=== PATIENT | male | born 1935 | race Caucasian/White ===

== ENCOUNTER → 2018-04-07 | Outpatient (CLI) | payer MEDICARE ==
--- NOTE | 2018-04-07 13:21 | MR ---
EXAMINATION TYPE: MR lumbar spine wo con DATE OF EXAM: 04/07/2018 COMPARISON: None HISTORY: Spinal stenosis, lumbar region, pain CONTRAST: 0 mL intravenous Gadavist. TECHNIQUE: Multiplanar, multisequence images of the lumbar spine were acquired. FINDINGS: L5-S1: There is a large central disc herniation with mild anterior thecal sac compression. Spinal c anal stenosis is present at 0.8 cm. Moderate right and severe left foraminal stenosis is present. L4-L5: There is narrowing of the disc height. Very minimal disc bulge has anterior thecal sac contact . No spinal canal stenosis present. Left facet hypertrophy is present there is moderate to severe lef t foraminal stenosis and very mild right foraminal stenosis at this level. L3-L4: Disc uncovering is present with mild anterior thecal sac compression. Facet hypertrophy with l igamentum flavum laxity is posterior lateral thecal sac compression. There may be some lateral canal narrowing. Very mild grade 1 spondylolisthesis of L3 anterior and L4 is present. Posterior disc space narrowing is present. There is severe bilateral foraminal stenosis. L2-L3: Broad-based disc bulge is present. This is slightly more focal centrally and may has some mild subligamentous disc extension beyond the endplate of L3. No AP spinal canal stenosis present. [employer] ior lateral thecal sac compression from facet hypertrophy and ligamentum flavum laxity is present. Fo ramen are patent. L1-L2: There is a right paracentral disc bulge which has mild anterior thecal sac compression. No spi nal canal stenosis present. Facet hypertrophy with mild ligamentum flavum laxity is present. Neural f oramen are patent. T12-L1: No significant disc bulge or disc herniation. No spinal canal stenosis. No foraminal stenos is. IMPRESSION: 1. Large central disc herniation L5-S1 with mild anterior thecal sac compression contributing to spin al canal stenosis. 2. Moderate to severe bilateral foraminal stenosis L4-5, L5-S1 and L3-4. 3. Grade 1 spondylolisthesis of L3 anterior and L4. Disc uncovering is contributing to mild anterior thecal sac compression. Ligamentum flavum laxity is contributing to lateral canal narrowing. 4. Subligamentous disc extension at the L2-L3 level with mild anterior thecal sac compression. 5. Right paracentral focal bulge with mild anterior thecal sac compression.
== END ==
LOC: RADMRIMAIN 07:28
PROVIDERS: ATTEND Internal Medicine
DX: M48.061 Spinal stenosis, lumbar region without neurogenic claudication (principal); M99.73 Connective tissue and disc stenosis of intervertebral foramina of lumbar region; M43.16 Spondylolisthesis, lumbar region; M51.27 Other intervertebral disc displacement, lumbosacral region
CPT/HCPCS: 72148

== ENCOUNTER 2020-08-07 03:25 | Observation (INO) | payer MEDICARE ==
--- NOTE | 2020-08-07 04:45 | ED ---
GI Bleed HPI - General Chief complaint: Recheck/Abnormal Lab/Rx Stated complaint: rectal bleeding Time Seen by Provider: 08/07/20 03:39 Source: patient Mode of arrival: ambulatory Limitations: no limitations - History of Present Illness Initial comments: this patient is an 85-year-old man who presents to be evaluated for passing some dark red blood with his stool. The patient states that this it come on tonight. He had been having some some difficulty with constipation after recently being in the hospital for prostate issues. He states that he had taken a number of remedies to help have bowel movement and then when he did pass some stool tonigh t there was some dark blood present with hard stool. He also had what appeared to be some blood mixed in the stool. Patient states there was no pain in the abdomen. No perianal pain. He denies any signs or symptoms of anemia. No chest pain, palpitations, lightheadedness, dyspnea or syncope. Patient is not taking any blood thinning medications. MD complaint: blood streaked stool -: hour(s) Severity scale (1-10): 0 Quality: painless Consistency: constant Improves with: none Worsens with: none Associated Symptoms: denies other symptoms - Related Data Allergies Allergy/AdvReac Type Severity Reaction Status Date / Time No Known Allergies Allergy Verified 08/07/20 03:32 Review of Systems ROS Statement: Those systems with pertinent positive or pertinent negative responses have been documented in the HPI. ROS Other: All systems not noted in ROS Statement are negative. Constitutional: Denies: fever, chills Respiratory: Denies: cough, dyspnea Cardiovascular: Denies: chest pain, palpitations, edema Gastrointestinal: Reports: constipation, melena. Denies: abdominal pain, nausea, vomiting, diarrhea, hematemesis, hematochezia Genitourinary: Denies: dysuria, hematuria, testicular pain Musculoskeletal: Denies: back pain Skin: Denies: rash Neurological: Denies: headache, weakness, numbness Past Medical History Past Medical History: No Reported History History of Any Multi-Drug Resistant Organisms: None Reported Past Surgical History: No Surgical Hx Reported Past Psychological History: No Psychological Hx Reported Smoking Status: Never smoker Past Alcohol Use History: None Reported Past Drug Use History: None Reported General Exam Limitations: no limitations General appearance: alert, in no apparent distress Head exam: Present: atraumatic, normocephalic Eye exam: Present: normal appearance. Absent: scleral icterus, conjunctival injection ENT exam: Present: normal oropharynx Neck exam: Present: normal inspection Respiratory exam: Present: normal lung sounds bilaterally. Absent: respiratory distress, wheezes, rales, rhonchi, stridor Cardiovascular Exam: Present: regular rate, normal rhythm, normal heart sounds. Absent: systolic murmur, diastolic murmur, rubs, gallop GI/Abdominal exam: Present: soft. Absent: distended, tenderness, guarding, rebound, rigid, mass, pulsatile mass, hernia Rectal exam: Present: normal inspection, normal rectal tone. Absent: black stool, bloody stool, fecal impaction, hemorrhoids, mass, tenderness, prostate tenderness Extremities exam: Present: normal inspection, normal capillary refill. Absent: pedal edema, calf tenderness Back exam: Present: normal inspection. Absent: CVA tenderness (R), CVA tenderness (L) Neurological exam: Present: alert Skin exam: Present: warm, dry, intact, normal color. Absent: rash Course Vital Signs 08/07/20 08/07/20 03:30 07:00 Temperature 97.8 F Pulse Rate 117 H 97 Respiratory 20 18 Rate Blood Pressure 130/65 128/62 O2 Sat by Pulse 96 99 Oximetry Medical Decision Making - Lab Data Result diagrams: 08/07/20 04:40 08/07/20 04:40 Lab Results 08/07/20 08/07/20 08/07/20 Range/Units 04:40 04:40 04:40 WBC 10.8 H (3.8-10.6) k/uL RBC 4.66 (4.30-5.90) m/uL Hgb 14.0 (13.0-17.5) gm/dL Hct 40.7 (39.0-53.0) % MCV 87.3 (80.0-100.0) fL MCH 30.0 (25.0-35.0) pg MCHC 34.4 (31.0-37.0) g/dL RDW 14.6 (11.5-15.5) % Plt Count 222 (150-450) k/uL MPV 7.6 Neutrophils % 75 % Lymphocytes % 15 % Monocytes % 5 % Eosinophils % 4 % Basophils % 0 % Neutrophils # 8.0 H (1.3-7.7) k/uL Lymphocytes # 1.6 (1.0-4.8) k/uL Monocytes # 0.6 (0-1.0) k/uL Eosinophils # 0.4 (0-0.7) k/uL Basophils # 0.0 (0-0.2) k/uL PT 10.6 (9.0-12.0) sec INR 1.0 (<1.2) APTT 21.6 L (22.0-30.0) sec Sodium (137-145) mmol/L Potassium (3.5-5.1) mmol/L Chloride (98-107) mmol/L Carbon Dioxide (22-30) mmol/L Anion Gap mmol/L BUN (9-20) mg/dL Creatinine (0.66-1.25) mg/dL Est GFR (CKD-EPI)AfAm (>60 ml/min/1.73 sqM) Est GFR (CKD-EPI)NonAf (>60 ml/min/1.73 sqM) Glucose (74-99) mg/dL Plasma Lactic Acid Enrique (0.7-2.0) mmol/L Calcium (8.4-10.2) mg/dL Total Bilirubin (0.2-1.3) mg/dL AST (17-59) U/L ALT (4-49) U/L Alkaline Phosphatase (38-126) U/L Troponin I (0.000-0.034) ng/mL Total Protein (6.3-8.2) g/dL Albumin (3.5-5.0) g/dL Stool Occult Blood Negative (Negative) Blood Type Blood Type Confirm Blood Type Recheck Bld Type Recheck Status Antibody Screen Spec Expiration Date 08/07/20 08/07/20 08/07/20 Range/Units 04:40 04:40 04:40 WBC (3.8-10.6) k/uL RBC (4.30-5.90) m/uL Hgb (13.0-17.5) gm/dL Hct (39.0-53.0) % MCV (80.0-100.0) fL MCH (25.0-35.0) pg MCHC (31.0-37.0) g/dL RDW (11.5-15.5) % Plt Count (150-450) k/uL MPV Neutrophils % % Lymphocytes % % Monocytes % % Eosinophils % % Basophils % % Neutrophils # (1.3-7.7) k/uL Lymphocytes # (1.0-4.8) k/uL Monocytes # (0-1.0) k/uL Eosinophils # (0-0.7) k/uL Basophils # (0-0.2) k/uL PT (9.0-12.0) sec INR (<1.2) APTT (22.0-30.0) sec Sodium 139 (137-145) mmol/L Potassium 4.4 (3.5-5.1) mmol/L Chloride 106 (98-107) mmol/L Carbon Dioxide 25 (22-30) mmol/L Anion Gap 8 mmol/L BUN 14 (9-20) mg/dL Creatinine 0.85 (0.66-1.25) mg/dL Est GFR (CKD-EPI)AfAm >90 (>60 ml/min/1.73 sqM) Est GFR (CKD-EPI)NonAf 81 (>60 ml/min/1.73 sqM) Glucose 101 H (74-99) mg/dL Plasma Lactic Acid Enrique 1.3 (0.7-2.0) mmol/L Calcium 9.9 (8.4-10.2) mg/dL Total Bilirubin 1.0 (0.2-1.3) mg/dL AST 29 (17-59) U/L ALT 28 (4-49) U/L Alkaline Phosphatase 122 (38-126) U/L Troponin I <0.012 (0.000-0.034) ng/mL Total Protein 6.6 (6.3-8.2) g/dL Albumin 3.8 (3.5-5.0) g/dL Stool Occult Blood (Negative) Blood Type Blood Type Confirm Blood Type Recheck Bld Type Recheck Status Antibody Screen Spec Expiration Date 08/07/20 08/07/20 Range/Units 04:40 05:49 WBC (3.8-10.6) k/uL RBC (4.30-5.90) m/uL Hgb (13.0-17.5) gm/dL Hct (39.0-53.0) % MCV (80.0-100.0) fL MCH (25.0-35.0) pg MCHC (31.0-37.0) g/dL RDW (11.5-15.5) % Plt Count (150-450) k/uL MPV Neutrophils % % Lymphocytes % % Monocytes % % Eosinophils % % Basophils % % Neutrophils # (1.3-7.7) k/uL Lymphocytes # (1.0-4.8) k/uL Monocytes # (0-1.0) k/uL Eosinophils # (0-0.7) k/uL Basophils # (0-0.2) k/uL PT (9.0-12.0) sec INR (<1.2) APTT (22.0-30.0) sec Sodium (137-145) mmol/L Potassium (3.5-5.1) mmol/L Chloride (98-107) mmol/L Carbon Dioxide (22-30) mmol/L Anion Gap mmol/L BUN (9-20) mg/dL Creatinine (0.66-1.25) mg/dL Est GFR (CKD-EPI)AfAm (>60 ml/min/1.73 sqM) Est GFR (CKD-EPI)NonAf (>60 ml/min/1.73 sqM) Glucose (74-99) mg/dL Plasma Lactic Acid Enrique (0.7-2.0) mmol/L Calcium (8.4-10.2) mg/dL Total Bilirubin (0.2-1.3) mg/dL AST (17-59) U/L ALT (4-49) U/L Alkaline Phosphatase (38-126) U/L Troponin I (0.000-0.034) ng/mL Total Protein (6.3-8.2) g/dL Albumin (3.5-5.0) g/dL Stool Occult Blood (Negative) Blood Type O Positive Blood Type Confirm O Positive Blood Type Recheck No Previous Record Bld Type Recheck Status CABO Indicated Antibody Screen NEGATIVE Spec Expiration Date 08/10/20202339 Disposition Clinical Impression: Lower GI bleeding Disposition: [facility] Condition: Good Is patient prescribed a controlled substance at d/c from ED?: No Referrals: Reyes Pablo MD [Primary Care Provider] - 1-2 days
[2020-08-07 04:57] LABS: Basophils % (A) 0 %; Eosinophils # (A) 0.4 k/uL (0-0.7); Eosinophils % (A) 4 %; HCT 40.7 % (39.0-53.0); Lymphocytes # (A) 1.6 k/uL (1.0-4.8); Lymphocytes % (A) 15 %; MCHC 34.4 g/dL (31.0-37.0); MCV 87.3 fL (80.0-100.0); Mean Platelet Volume 7.6; Monocytes # (A) 0.6 k/uL (0-1.0); Monocytes % (A) 5 %; Neutrophils % (A) 75 %; Platelet Count 222 k/uL (150-450); RBC 4.66 m/uL (4.30-5.90); RDW 14.6 % (11.5-15.5); WBC 10.8 k/uL (3.8-10.6)
[2020-08-07 05:05] LABS: ALT 28 U/L (4-49); AST 29 U/L (17-59); African American GFR (CKD) >90 (>60 ml/min/1.73 sqM); Albumin 3.8 g/dL (3.5-5.0); Alkaline Phosphatase 122 U/L (38-126); Anion Gap 8 mmol/L; Blood Urea Nitrogen 14 mg/dL (9-20); Calcium 9.9 mg/dL (8.4-10.2); Carbon Dioxide 25 mmol/L (22-30); Chloride 106 mmol/L (98-107); Glucose 101 mg/dL (74-99); Non-African American GFR(CKD) 81 (>60 ml/min/1.73 sqM); Potassium 4.4 mmol/L (3.5-5.1); Sodium 139 mmol/L (137-145); Total Protein 6.6 g/dL (6.3-8.2)
[2020-08-07 05:22] LABS: Prothrombin Time 10.6 sec (9.0-12.0)
[2020-08-07 05:33] LABS: Partial Thromboplastin Time 21.6 sec (22.0-30.0)
[2020-08-07] MEDS ORDERED: ACETAMINOPHEN TAB 325 MG TAB PO PRN (07:09)
[2020-08-07] MEDS ORDERED: ONDANSETRON 4 MG/2 ML VIAL IVP PRN (07:09)
[2020-08-07] MEDS ORDERED: NALOXONE 0.4 MG/ML 1 ML VIAL IV PRN (07:09)
[2020-08-07] MEDS ORDERED: SODIUM CHLORIDE 0.9% 1,000 ML IV SCH (07:15)
[2020-08-07] MEDS: PANTOPRAZOLE 40 MG/10 ML VIAL IV SCH (08:48)
[2020-08-07] MEDS: HYDROCORTISONE SUPPOSITORY 25 MG SUPP RECTAL SCH (11:40)
--- NOTE | 2020-08-07 12:21 | P.HPIM ---
History of Present Illness H&P Date: 08/07/20 Chief Complaint: Hematochezia This is an 85-year-old white male who reported to the hospital because of passing blood in the stool. He describes the blood as dark and it happened twice since last night. He denies dizziness or loss of consciousness. He denies chest pain, no abdominal pain, no hematuria or dysuria. He denies subjective fever or chills. At the time of examination patient is in bed, he does not appear to be in distress. He denies chest pain. Review of Systems Pertinent positive and negative findings as in HPI. No chest pain, no abdominal pain. Positive for hematochezia. Past Medical History Past Medical History: No Reported History, Eye Disorder Additional Past Medical History / Comment(s): Pt states he had recent hospitalization d/t prostate/urinary flow issues and UTI/hematuria-pt states he had IDC x 11 days and will be following up with Dr. Charles, BPH, diverticular dx, bilateral eye cataracts/glaucoma. History of Any Multi-Drug Resistant Organisms: None Reported Past Surgical History: Back Surgery, Tonsillectomy Additional Past Surgical History / Comment(s): Lumbar spine surgery with Coflex clip, colonoscopy Past Anesthesia/Blood Transfusion Reactions: No Reported Reaction Smoking Status: Never smoker - Past Family History Father Family Medical History: COPD Additional Family Medical History / Comment(s): Father was a smoker. He lived t be 83 yrs old. Mother Family Medical History: Cancer Additional Family Medical History / Comment(s): Colon cancer. Mother is 98yrs old. Medications and Allergies Home Medications Medication Instructions Recorded Confirmed Type Cephalexin [Keflex] 500 mg PO BID 08/07/20 08/07/20 History Latanoprost/Pf [Latanoprost 0.005% 1 drop BOTH EYES HS 08/07/20 08/07/20 History Eye Drop] Allergies Allergy/AdvReac Type Severity Reaction Status Date / Time No Known Allergies Allergy Verified 08/07/20 07:21 Physical Exam Vitals: Vital Signs Temp Pulse Resp BP Pulse Ox 08/07/20 11:21 98.0 F 86 18 132/84 95 08/07/20 08:52 94 18 130/74 98 08/07/20 07:00 97 18 128/62 99 08/07/20 03:30 97.8 F 117 H 20 130/65 96 Intake and Output 08/06/20 08/07/20 08/07/20 22:59 06:59 14:59 Other: Weight 77.111 kg 77.111 kg Constitutional: No acute distress, conversant, pleasant Eyes: Anicteric sclerae, moist conjunctiva ENMT: NC/AT,Oropharynx clear Neck:Supple, FROM Lungs: Clear to auscultation, Clear to percussion, Normal respiratory effort, no accessory muscle use Cardiovascular: Heart regular in rate and rhythm, No murmurs, gallops, or rubs no peripheral edema Abdominal: Soft Nontender, non distended, no guarding, no rebound or rigidity, Normoactive bowel sounds No palpable mass No abdominal wall hernia noted Skin: Normal temperature, tone, texture, turgor, No induration No subcutaneous nodules, No rash, lesions, No ulcers Extremities:No digital cyanosis No clubbing, Pedal pulses intact and symmetrical Radial pulses intact and symmetrical Normal gait and station, No calf tenderness Psychiatric: Alert and oriented to person, place and time, Appropriate affect Intact judgement Neuro: Muscles Strength 5/5 in all 4 extremities, Sensation to light touch grossly present throughout, Cranial nerves II-XII grossly intact. No focal sensory deficits Results CBC & Chem 7: 08/07/20 04:40 08/07/20 04:40 Labs: Abnormal Lab Results - Last 24 Hours (Table) 08/07/20 08/07/20 08/07/20 Range/Units 04:40 04:40 04:40 WBC 10.8 H (3.8-10.6) k/uL Neutrophils # 8.0 H (1.3-7.7) k/uL APTT 21.6 L (22.0-30.0) sec Glucose 101 H (74-99) mg/dL Thrombosis Risk Factor Assmnt - Choose All That Apply Any of the Below Risk Factors Present?: Yes Each Factor Represents 1 point: Obesity (BMI >25) Other Risk Factors: Yes Each Risk Factor Represents 3 Points: Age 75 years or older Thrombosis Risk Factor Assessment Total Risk Factor Score: 4 Thrombosis Risk Factor Assessment Level: Moderate Risk Assessment and Plan Assessment: 1. Acute GI bleed, likely lower, unknown etiology, monitor H&H, hemoglobin 14, transfuse as indicated. Start PPI and IV fluids, GI consultation. Patient states that he had a colonoscopy in 2019. 2. Hypovolemia: Start normal saline at 75 mL/h DVT prophylaxis: SCDs Disposition: Home in 1-2 days
--- NOTE | 2020-08-07 12:51 | P.CONS ---
History of Present Illness - Reason for Consult Consult date: 08/07/20 Lower GI bleed Requesting physician: Jay Aleman - Chief Complaint Rectal bleeding - History of Present Illness This is a pleasant 85-year-old white male presented to the emergency room after he had 2 episodes of bright red blood per rectum after having a bowel movement. Patient states he has problems with constipation due to enlarged prostate. He states he has to really push to have a bowel movement and yesterday he gave himself an enema followed by his daughter giving him castor oil to have a bowel movement. He states he had 2 bowel movements and then later noted when he sat on the toilet he had a small amount of bright red blood dripping in the toilet that stopped after wiping. He states he Got up at 2 AM to Go to the Bathroom and Again Saw a Small Amount of Bleeding That Stopped Right Away. He eats the bleeding was painless, had no abdominal cramping or pain. No pain in the rectum. Has a history of diverticulitis for which he underwent a colonoscopy in 2019 at [facility] with Dr. Hall, report not available at this time. Eyes any anticoagulation or NSAID use. He is currently on Keflex for which Dr. Manjarrez has prescribed him for a urinary tract infection as well as watching his prostate. His Hemoccult stool was negative and his presenting labs were WBC 10.8, hemoglobin 14.0, hematocrit 40.0, platelets 222,000 liver enzymes unremarkable, BUN and creatinine normal limits. Review of Systems Constitutional: Denies chills, Denies fever Ears, nose, mouth and throat: Denies headache, Denies sore throat Cardiovascular: Denies chest pain, Denies shortness of breath Respiratory: Denies cough Gastrointestinal: Reports BRBPR, Reports change in bowel habits, Reports constipation, Denies abdominal pain, Denies bloating, Denies coffee ground emesis, Denies melena, Denies nausea, Denies vomiting Genitourinary: Reports urinary hesitancy, Reports urinary retention Musculoskeletal: Denies myalgias Integumentary: Denies pruritus, Denies rash Neurological: Denies numbness, Denies weakness Past Medical History Past Medical History: No Reported History, Eye Disorder Additional Past Medical History / Comment(s): Pt states he had recent hospitalization d/t prostate/urinary flow issues and UTI/hematuria-pt states he had IDC x 11 days and will be following up with Dr. Charles, BPH, diverticular dx, bilateral eye cataracts/glaucoma. History of Any Multi-Drug Resistant Organisms: None Reported Past Surgical History: Back Surgery, Tonsillectomy Additional Past Surgical History / Comment(s): Lumbar spine surgery with Coflex clip, colonoscopy Past Anesthesia/Blood Transfusion Reactions: No Reported Reaction Smoking Status: Never smoker - Past Family History Father Family Medical History: COPD Additional Family Medical History / Comment(s): Father was a smoker. He lived t be 83 yrs old. Mother Family Medical History: Cancer Additional Family Medical History / Comment(s): Colon cancer. Mother is 98yrs old. Medications and Allergies Home Medications Medication Instructions Recorded Confirmed Type Cephalexin [Keflex] 500 mg PO BID 08/07/20 08/07/20 History Latanoprost/Pf [Latanoprost 0.005% 1 drop BOTH EYES HS 08/07/20 08/07/20 History Eye Drop] Allergies Allergy/AdvReac Type Severity Reaction Status Date / Time No Known Allergies Allergy Verified 08/07/20 07:21 Physical Exam Vitals: Vital Signs Temp Pulse Resp BP Pulse Ox 08/07/20 11:21 98.0 F 86 18 132/84 95 08/07/20 08:52 94 18 130/74 98 08/07/20 07:00 97 18 128/62 99 08/07/20 03:30 97.8 F 117 H 20 130/65 96 Intake and Output 08/06/20 08/07/20 08/07/20 22:59 06:59 14:59 Other: Weight 77.111 kg 77.111 kg General appearance: The patient is alert, oriented, in no acute distress. HET: Head is normocephalic and atraumatic. Oropharynx is clear without lesions. Neck: Supple without lymphadenopathy. Trachea midline. Heart: S1 S2. Regular rate and rhythm. Lungs: They're to auscultation. Abdomen: Soft, nontender, nondistended with bowel sounds. No peritoneal signs. No palpable organomegaly or masses. Extremities: Normal skin color and turgor. No pedal edema Neurological: No focal deficits. Alert and oriented 3. Results CBC & Chem 7: 08/07/20 04:40 08/07/20 04:40 Labs: Abnormal Lab Results - Last 24 Hours (Table) 08/07/20 08/07/20 08/07/20 Range/Units 04:40 04:40 04:40 WBC 10.8 H (3.8-10.6) k/uL Neutrophils # 8.0 H (1.3-7.7) k/uL APTT 21.6 L (22.0-30.0) sec Glucose 101 H (74-99) mg/dL Assessment and Plan (1) Lower GI bleeding Narrative/Plan: This is a pleasant 85-year-old male patient who presented to the emergency room with complaints of 2 episodes of bleeding from the rectum which he states was darker in color. He states he has been suffering from constipation and has to struggle and strain to have a bowel movement. Yesterday he gave himself an enema for which he states he had a bowel movement however had to strain significantly. His daughter then came over and gave him some castor oil which he also had another bowel movement. He denies any blood being mixed in with the stool. Later that day felt like he had to go the bathroom again and when he sat down on the toilet he noticed a couple small drops of blood in the toilet which he states was dark, this again happened at 2 AM. He states that it is painless, he denied any abdominal pain or cramping. He does also state that he has a history of diverticulitis for which he underwent a colonoscopy in [address] Hall, however the report is not available at this time. He had a stable hemoglobin of 14.0 as well as a negative occult stool. We dealing with hemorrhoidal were fissure due to straining and constipation. However cannot exclude possibility of diverticular bleed with patient's history of diverticulosis. Current Visit: Yes Status: Acute Code(s): K92.2 - GASTROINTESTINAL HEMORRHAGE, UNSPECIFIED SNOMED Code(s): 23450252 Plan: 1. Patient may have regular diet 2. Repeat CBC in the a.m. 3. Will order Anusol suppository 4. Discussed using MiraLAX daily and up to twice daily as needed for constipation 5. No plans on endoscopic evaluation at this time patient had recent col onoscopy, can try to get records. 6. Recommend patient have follow-up with gastroenterology regarding management of chronic constipation Thank you for this consultation, we will continue to follow. Patient may be discharged home from a gastroenterology standpoint if otherwise deemed medically clear. Dr. Lissett Coughlin I agree with the dictator's note, documented as a scribe by Nevaeh Roblero.
[2020-08-07] MEDS: SODIUM CHLORIDE 0.9% 1,000 ML IV SCH (15:35)
[2020-08-07] MEDS: LACTULOSE 20 GM/30 ML CUP PO SCH ×3 (17:32→21:32)
[2020-08-07] MEDS ORDERED: LATANOPROST 0.005% OPHTH DROPS 2.5 ML BTL BOTH EYES SCH (21:00)
[2020-08-08 03:05] VITALS: RESP 16
[2020-08-08] MEDS: SODIUM CHLORIDE 0.9% 1,000 ML IV SCH (03:19)
[2020-08-08 07:45] VITALS: BP 122/76; PULSE 81; TEMP 97.6
--- NOTE | 2020-08-08 08:45 | P.DS ---
Providers Date of admission: 08/07/20 07:29 Expected date of discharge: 08/08/20 Attending physician: Ni Mendoza MD Consults: 08/07/20 07:10 Consult Physician Routine Consulting Provider: Deneen Coughlin Consult Reason/Comments: lower GI Bleeding Do you want consulting provider notified?: Yes Primary care physician: Reyes Pablo MD Hospital Course: HPI: This is an 85-year-old white male who reported to the hospital because of passing blood in the stool. He describes the blood as dark and it happened twice since last night. He denies dizziness or loss of consciousness. He denies chest pain, no abdominal pain, no hematuria or dysuria. He denies subjective fever or chills. At the time of examination patient is in bed, he does not appear to be in distress. He denies chest pain. Hospital course and treatment: Patient was admitted to hospital with blood in the stool, he remained hemodynamically stable. He was started on IV fluids and IV Protonix. No fur ther bleeding while in the hospital. He was evaluated by GI, no endoscopy is needed at this time. Since patient remained hemodynamically stable with no further bleeding he was cleared for discharge by GI. They will see him as an outpatient. They will follow up with him regarding chronic constipation management. Patient Condition at Discharge: Stable Plan - Discharge Summary Discharge Rx Participant: No New Discharge Prescriptions: Continue Cephalexin [Keflex] 500 mg PO BID Latanoprost/Pf [Latanoprost 0.005% Eye Drop] 1 drop BOTH EYES HS Discharge Medication List Cephalexin [Keflex] 500 mg PO BID 08/07/20 [History] Latanoprost/Pf [Latanoprost 0.005% Eye Drop] 1 drop BOTH EYES HS 08/07/20 [History] Follow up Appointment(s)/Referral(s): Katherine Cheung PAC [REFERRING] - 2 Weeks Reyes Pablo MD [Primary Care Provider] - 1-2 days Discharge Disposition: HOME SELF-CARE
[2020-08-08] MEDS: LACTULOSE 20 GM/30 ML CUP PO SCH (08:49)
[2020-08-08] MEDS: PANTOPRAZOLE 40 MG/10 ML VIAL IV SCH (08:50)
[2020-08-08] MEDS: HYDROCORTISONE SUPPOSITORY 25 MG SUPP RECTAL SCH (08:50)
[2020-08-08] MEDS ORDERED: polyethylene glycoL 3350 17 GM POWD.PACK PO SCH (09:00)
[2020-08-08 11:09] LABS: Basophils # (A) 0.02 X 10*3/uL (0.00-0.10); Basophils % (A) 0.2 %; Eosinophils # (A) 0.34 X 10*3/uL (0.04-0.35); Eosinophils % (A) 4.1 %; HCT 40.1 % (39.6-50.0); HGB 12.7 g/dL (13.0-17.0); Lymphocytes # (A) 1.59 X 10*3/uL (0.90-5.00); Lymphocytes % (A) 19.2 %; MCH 28.8 pg (27.0-32.0); MCHC 31.7 g/dL (32.0-37.0); MCV 90.9 fL (80.0-97.0); Mean Platelet Volume 11.6 fL (9.5-12.2); Monocytes % (A) 9.6 %; Neutrophils % (A) 66.3 %; Platelet Count 212 X 10*3/uL (140-440); RBC 4.41 X 10*6/uL (4.40-5.60); RDW 14.8 % (11.5-14.5)
[2020-08-08 12:43] LABS: African American GFR (CKD) 80.3 (60.0-200.0); Albumin 3.6 g/dL (3.80-4.90); Albumin/Globulin Ratio 1.71 (1.60-3.17); Anion Gap 9.8 mmol/L (4.00-12.00); Calcium 9.3 mg/dL (8.7-10.3); Carbon Dioxide 24.2 mmol/L (21.6-31.8); Globulin 2.1 g/dL (1.6-3.3); Non-African American GFR(CKD) 69.3 (60.0-200.0); Potassium 4.3 mmol/L (3.5-5.5); Total Protein 5.7 g/dL (6.2-8.2)
== END 2020-08-08 09:21 | disposition home or self-care (01) ==
LOC: EC 03:25 → 6NMEDSUR 07:29
PROVIDERS: ADMIT Internal Medicine; ATTEND Internal Medicine
DX: K92.1 Melena (principal); K59.00 Constipation, unspecified; E86.1 Hypovolemia; N39.0 Urinary tract infection, site not specified; N40.1 Benign prostatic hyperplasia with lower urinary tract symptoms; K57.90 Diverticulosis of intestine, part unspecified, without perforation or abscess without bleeding; H26.9 Unspecified cataract; H40.9 Unspecified glaucoma; E66.9 Obesity, unspecified; Z68.27 Body mass index [BMI] 27.0-27.9, adult; Z20.822 Contact with and (suspected) exposure to COVID-19; Z79.899 Other long term (current) drug therapy; Z98.890 Other specified postprocedural states; Z82.5 Family history of asthma and other chronic lower respiratory diseases; Z80.0 Family history of malignant neoplasm of digestive organs; Z81.2 Family history of tobacco abuse and dependence
CPT/HCPCS: 96361; 96374; 99285; 36415; 86900; 86901; 80053 ×2; 83605; 84484; 85025 ×2; 85610; 85730; 86850; 82272; 87636; G0378 ×2; C9113

== ENCOUNTER 2021-01-21 06:06 | Emergency (ER) | payer MEDICARE ==
[2021-01-21 06:14] VITALS: RESP 18; TEMP 98
[2021-01-21] MEDS ORDERED: SODIUM CHLORIDE 0.9% 1,000 ML IV ONE (06:23)
--- NOTE | 2021-01-21 06:28 | ED ---
Male Urogenital HPI - General Chief complaint: Urogenital Stated complaint: Urogenital Source: patient, RN notes reviewed Mode of arrival: ambulatory Limitations: no limitations - History of Present Illness Initial comments: Patient 85-year-old male present to the ER for hematuria exacerbation this morning. Patient states that he was hospitalized in july for covid and well was under care was catheterized 14 times in the hospital. Patient states that since this has had episodic hematuria this morning was different with more red tinting of urine. Patient denies any flank pain or tenderness and is comfortable sitting in room, concerned about color and lack of knowing what's happening. Patient states he dropped off urinary urology on Thursday but hasn't heard back from them yet. Patient denies any pain with urination. Patient reports complete emptying and no change in frequency at this time. Patient does have a history of enlarged prostate patient states that they have followed in the past and had biopsies at. - Related Data Home Medications Medication Instructions Recorded Confirmed Cephalexin [Keflex] 500 mg PO BID 08/07/20 08/07/20 Latanoprost/Pf [Latanoprost 0.005% 1 drop BOTH EYES HS 08/07/20 08/07/20 Eye Drop] Previous Rx's Medication Instructions Recorded Sulfamethox-Tmp 800-160Mg [Bactrim 1 each PO Q12HR #20 tab 01/21/21 Ds] Allergies Allergy/AdvReac Type Severity Reaction Status Date / Time No Known Allergies Allergy Verified 01/21/21 06:14 Review of Systems ROS Statement: Those systems with pertinent positive or pertinent negative responses have been documented in the HPI. ROS Other: All systems not noted in ROS Statement are negative. Past Medical History Past Medical History: Eye Disorder Additional Past Medical History / Comment(s): Pt states he had recent hospitalization d/t prostate/urinary flow issues and UTI/hematuria-pt states he had IDC x 11 days and will be following up with Dr. Charles, BPH, diverticular dx, bilateral eye cataracts/glaucoma. History of Any Multi-Drug Resistant Organisms: None Reported Past Surgical History: Back Surgery, Tonsillectomy Additional Past Surgical History / Comment(s): Lumbar spine surgery with Coflex clip, colonoscopy Past Anesthesia/Blood Transfusion Reactions: No Reported Reaction Past Psychological History: No Psychological Hx Reported Smoking Status: Never smoker Past Alcohol Use History: None Reported Past Drug Use History: None Reported - Past Family History Father Family Medical History: COPD Additional Family Medical History / Comment(s): Father was a smoker. He lived t be 83 yrs old. Mother Family Medical History: Cancer Additional Family Medical History / Comment(s): Colon cancer. Mother is 98yrs old. General Exam General appearance: alert, in no apparent distress Respiratory exam: Present: normal lung sounds bilaterally. Absent: respiratory distress, wheezes, rales, rhonchi, stridor Cardiovascular Exam: Present: regular rate, normal rhythm, normal heart sounds. Absent: systolic murmur, diastolic murmur, rubs, gallop, clicks GI/Abdominal exam: Present: soft, normal bowel sounds. Absent: distended, tenderness, guarding, rebound, rigid Back exam: Present: normal inspection Neurological exam: Present: alert, oriented X3 Skin exam: Present: warm, dry, intact, normal color. Absent: rash Course Vital Signs 01/21/21 06:12 Temperature 98 F Pulse Rate 100 Respiratory 18 Rate Blood Pressure 147/69 O2 Sat by Pulse 98 Oximetry Medical Decision Making - Medical Decision Making Patient patient presents for hematuria, CT imaging shows enlargement of prostate, concerns for malignant process of prostate. Prior urinalysis showed bacterial growth, will be sent home on antibiotics for treatment of urinary tract infection. Patient counseled on the importance of urology follow-up. Patient counseled on return parameters. Patient states that he's had his prostate biopsies in the past and was told was noncancerous though his prostate is very enlarged, offered Ferrer if he cannot urinate patient declines. Follow- up with urology - Differential Diagnosis UTI - Lab Data Result diagrams: 01/21/21 06:27 01/21/21 06:27 Lab Results 01/21/21 01/21/21 01/21/21 Range/Units 06:27 06:27 06:27 WBC 8.5 (3.8-10.6) k/uL RBC 5.16 (4.30-5.90) m/uL Hgb 15.8 (13.0-17.5) gm/dL Hct 46.8 (39.0-53.0) % MCV 90.8 (80.0-100.0) fL MCH 30.6 (25.0-35.0) pg MCHC 33.7 (31.0-37.0) g/dL RDW 13.9 (11.5-15.5) % Plt Count 187 (150-450) k/uL MPV 8.1 Neutrophils % 51 % Lymphocytes % 33 % Monocytes % 6 % Eosinophils % 8 % Basophils % 0 % Neutrophils # 4.3 (1.3-7.7) k/uL Lymphocytes # 2.8 (1.0-4.8) k/uL Monocytes # 0.5 (0-1.0) k/uL Eosinophils # 0.7 (0-0.7) k/uL Basophils # 0.0 (0-0.2) k/uL Sodium 143 (137-145) mmol/L Potassium 4.0 (3.5-5.1) mmol/L Chloride 111 H (98-107) mmol/L Carbon Dioxide 22 (22-30) mmol/L Anion Gap 10 mmol/L BUN 17 (9-20) mg/dL Creatinine 0.87 (0.66-1.25) mg/dL Est GFR (CKD-EPI)AfAm >90 (>60 ml/min/1.73 sqM) Est GFR (CKD-EPI)NonAf 80 (>60 ml/min/1.73 sqM) Glucose 103 H (74-99) mg/dL Calcium 9.7 (8.4-10.2) mg/dL Urine Color Brown Urine Appearance Bloody (Clear) Disposition Clinical Impression: Urinary tract infection Disposition: HOME SELF-CARE Instructions (If sedation given, give patient instructions): Urinary Tract Infection in Men (ED) Additional Instructions: Please return to the Emergency Department if symptoms worsen or any other concerns. Prescriptions: Sulfamethox-Tmp 800-160Mg [Bactrim Ds] 1 each PO Q12HR #20 tab Is patient prescribed a controlled substance at d/c from ED?: No Referrals: None,Stated [Primary Care Provider] - 1-2 days Lenard Charles MD [STAFF PHYSICIAN] - 1-2 days Time of Disposition: 07:58
[2021-01-21 06:39] LABS: Basophils % (A) 0 %; Eosinophils # (A) 0.7 k/uL (0-0.7); Eosinophils % (A) 8 %; HCT 46.8 % (39.0-53.0); HGB 15.8 gm/dL (13.0-17.5); Lymphocytes # (A) 2.8 k/uL (1.0-4.8); Lymphocytes % (A) 33 %; MCH 30.6 pg (25.0-35.0); MCHC 33.7 g/dL (31.0-37.0); MCV 90.8 fL (80.0-100.0); Mean Platelet Volume 8.1; Monocytes # (A) 0.5 k/uL (0-1.0); Monocytes % (A) 6 %; Neutrophils # (A) 4.3 k/uL (1.3-7.7); Neutrophils % (A) 51 %; Platelet Count 187 k/uL (150-450); RBC 5.16 m/uL (4.30-5.90); RDW 13.9 % (11.5-15.5); WBC 8.5 k/uL (3.8-10.6)
[2021-01-21 06:40] LABS: Appearance,Urine Bloody (Clear)
[2021-01-21 06:41] LABS: Color,Urine Brown
[2021-01-21 06:49] LABS: RBC,Urine >182 /hpf (0-5); WBC,Urine >182 /hpf (0-5)
[2021-01-21 07:01] LABS: African American GFR (CKD) >90 (>60 ml/min/1.73 sqM); Anion Gap 10 mmol/L; Blood Urea Nitrogen 17 mg/dL (9-20); Calcium 9.7 mg/dL (8.4-10.2); Carbon Dioxide 22 mmol/L (22-30); Chloride 111 mmol/L (98-107); Glucose 103 mg/dL (74-99); Non-African American GFR(CKD) 80 (>60 ml/min/1.73 sqM); Sodium 143 mmol/L (137-145)
--- NOTE | 2021-01-21 07:39 | CT ---
EXAMINATION TYPE: CT abdomen pelvis wo con DATE OF EXAM: 01/21/2021 COMPARISON: None HISTORY: Hematuria CT DLP: 723.2 mGycm Automated exposure control for dose reduction was used. TECHNIQUE: Helical acquisition of images was performed from the lung bases through the pelvis. FINDINGS: LUNG BASES: There is dependent atelectasis bilaterally. LIVER/GB: No significant abnormality is appreciated. PANCREAS: No significant abnormality is seen. SPLEEN: Calcifications in the spleen is indicative of prior granulomatous disease. ADRENALS: No significant abnormality is seen. KIDNEYS: There is a 2.3 cm low-density lesion in the lower pole of the left kidney. No definite hydro nephrosis or nephroureterolithiasis is seen. FREE AIR: No free air is visualized RETROPERITONEAL ADENOPATHY: None visualized URINARY BLADDER/PELVIC ORGANS: The prostate measures up to 7.8 x 8.9 x 10.6 cm and the urinary bladd er is thick-walled. PELVIC ADENOPATHY: None visualized. OSSEOUS STRUCTURES: Degenerative changes are seen in the bones. BOWEL: No significant abnormality is seen. IMPRESSION: 1. 2.3 CM LOW-DENSITY LESION IN LOWER POLE OF THE LEFT KIDNEY IS INDETERMINATE ON THIS EXAMINATION. U LTRASOUND COULD BE OBTAINED IF FURTHER EVALUATION IS CLINICALLY WARRANTED. NO HYDRONEPHROSIS OR NEPHR OURETEROLITHIASIS IS SEEN. 2. MASSIVE ENLARGEMENT OF THE PROSTATE WITH DIFFUSE WALL THICKENING OF THE URINARY BLADDER, LIKELY DU E TO BLADDER OUTLET OBSTRUCTION. PLEASE NOTE, CT IS INSENSITIVE FOR PROSTATE MASS.
[2021-01-21 08:00] VITALS: BP 177/95; PULSE 77
== END 2021-01-21 08:25 | disposition home or self-care (01) ==
LOC: EC 06:06
DX: N39.0 Urinary tract infection, site not specified (principal)
CPT/HCPCS: 36415; 74176; 80048; 81001; 85025; 87086; 96360; 96361; 99284

== ENCOUNTER → 2021-03-01 | Outpatient (CLI) | payer MEDICARE ==
--- NOTE | 2021-03-01 13:45 | US ---
EXAMINATION TYPE: US kidneys/renal and bladder DATE OF EXAM: 03/01/2021 COMPARISON: CT abdomen and pelvis March 23, 2021 CLINICAL HISTORY: D41.01 Renal mass. Left renal lesion visualized on recent CT EXAM MEASUREMENTS: Right Kidney: 10.0 x 5.4 x 4.0 cm Left Kidney: 11.4 x 6.2 x 4.1 cm Right Kidney: no evidence of hydronephrosis Left Kidney: cystic area lower pole = 2.6 x 2.4 x 2.4cm Bladder: not fully distended, appears wnl Bilateral Jets seen: no *prostate enlarged = 7.1cm There is no evidence for hydronephrosis at this point in time. No nephrolithiasis is seen. Correspon ding to CT there is partially exophytic 2.6 cm round anechoic lesion with slight increased through tr ansmission consistent with simple thin-walled cyst thought present. The urinary bladder is not greatl y distended. Lobulated contour with [id number] wall thickening. Markedly enlarged prostate rede monstrated. Bilateral ureteral jets are not seen. IMPRESSION: Confirmation of 2.6 cm thin-walled cyst lower pole of the left kidney. Redemonstration of BPH causing outlet obstruction in the urinary bladder
== END | disposition home or self-care (01) ==
LOC: RADUSWWP 12:44
PROVIDERS: ATTEND Urology
DX: N28.1 Cyst of kidney, acquired (principal); D41.01 Neoplasm of uncertain behavior of right kidney
CPT/HCPCS: 76770

== ENCOUNTER 2021-03-13 08:33 | Day surgery (SDC) | payer MEDICARE ==
[2021-03-12 08:22] VITALS: BMI 26.2
[~2021-03-13 08:33] MED LIST: DEXAMETHASONE SOD PHOSPHATE 4 MG/ML 1 ML VIAL IV ONE; LACTATED RINGERS 1,000 ML IV SCH; LIDOCAINE 1% (10MG/ML) FOR IV START INTRADERMA PRN; MOXIFLOXACIN HCL 0.5% DROPS 3 ML BTL OP PRN; ONDANSETRON 4 MG/2 ML VIAL IVP ONE; TETRACAINE 0.5% OPHTH (PF) DROPS 4 ML BTL OP PRN; TIMOLOL 0.5% OPHTH DROPS 5 ML BTL OP PRN
[2021-03-13 09:29] VITALS: TEMP 97.3
[2021-03-13] MEDS: CYCLOPENTOLATE 1% OPHTH SOLN 2 ML BTL OP PRN ×3 (09:32→09:46)
[2021-03-13] MEDS: PHENYLEPHRINE 2.5% OPHTH DRP 2ML OP PRN ×3 (09:35→09:49)
[2021-03-13] MEDS ORDERED: MIDAZOLAM 2 MG/2 ML VIAL ONE (10:38)
[2021-03-13] MEDS ORDERED: .fentaNYL (PF) 50 MCG/ML 2 ML AMP ONE (10:38)
[2021-03-13] MEDS ORDERED: HYALURONATE SODIUM INTRAOCULAR 1 EACH SYRINGE (12MG/ML) INTRAOCULA ONE ×2 (10:58)
[2021-03-13] MEDS ORDERED: LIDOCAINE 1% (PF) 10MG/ML VIAL MISCELLANE ONE (10:59)
[2021-03-13] MEDS ORDERED: BALANCED SALT IRRIG SOLN COMB2 15 ML IRRIG.SOLN INTRAOCULA ONE (10:59)
[2021-03-13] MEDS ORDERED: DUOVISC KIT (GREEN BOX) INTRAOCULA ONE (10:59)
[2021-03-13] MEDS ORDERED: TRYPAN BLUE 0.06% SYRINGE 0.5 ML SYRINGE INTRAOCULA ONE (11:00)
[2021-03-13] MEDS ORDERED: EPINEPHrine (PF) 0.3 ML in BALANCED SALT IRRIG SOLN COMB2 500 ML IRRIGATION ONE (11:16)
--- NOTE | 2021-03-13 11:28 | P.OP ---
Date of Procedure: 03/13/21 Preoperative Diagnosis: NS & CS & POAG moderate Postoperative Diagnosis: same Procedure(s) Performed: PIOL OD & iStent inject Implants: [id number] & iStent inject Anesthesia: MAC Surgeon: David Das Pathology: none sent Condition: stable Disposition: same day Indications for Procedure: blurry vision and better glaucoma control Operative Findings: no complications
[2021-03-13 11:34] VITALS: RESP 16
[2021-03-13 11:57] VITALS: BP 148/83; PULSE 71
--- NOTE | 2021-03-13 20:40 | OP ---
OPERATIVE REPORT DATE OF SURGERY: 03/13/2021 PROCEDURE: Phacoemulsification of cataract with intraocular lens implant of the right eye and iStent implantation of the right eye. 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 SURGEON: Dr. David Das. ANESTHESIA: Topical. ESTIMATED BLOOD LOSS: None. SPECIMEN TAKEN: None. NARRATIVE: After obtaining the appropriate consent, the patient was brought to the operating room. There he was placed under cardiac monitoring, prepped and draped in the usual sterile manner. He was approached from his right temporal side and at the 11 o'clock position an MVR blade was used to create a paracentesis port. Through this opening 1% Xylocaine MPF 50:50 mix with balanced salt solution was injected into the anterior chamber. This was followed by instillation of Trypan blue, which was left in place for one minute. Balanced salt solution was used then to irrigate the Trypan blue out of the anterior chamber and the anterior chamber was then stabilized with Viscoat. At the 9 o'clock position a 2.5 mm keratome was used to create a self-sealing corneal flap incision. The patient was then asked to rotate his head to his left about 45 degrees and maintain a gaze in that particular direction. A small amount of Viscoat was placed on the patient's cornea and a Gonio Prism was used to examine the nasal angle of the patient's eye. The trabecular meshwork was easily identified with the Trypan blue, and using an iStent inject, an attempt to place one of the devices in the nasal trabecular meshwork was unsuccessful, and the device was freely floating in the anterior chamber. This was retrieved using the Utrata forceps. Care was then taken to replace the iStent inject instrument with a new device in an attempt to place a new implant in the trabecular meshwork. This time the first implant was deployed correctly with an expected small amount hemorrhage as one would expect without difficulty. Attempt to place a second iStent inject implant was made, and again with no capture by the trabecular meshwork, the loose implant was then retrieved from the anterior chamber, and no further attempt was made to implant any more injectable devices into the patient's eye, in consideration of the significant amount of bleeding which was noted from the first implanted device. The patient was then rotated back to the normal supine position. A cystotome was used to begin a continuous tear capsulorrhexis which was then completed using the Utrata forceps. Hydrodissection and hydrodelineation of the lens were accomplished with balanced salt solution. Phacoemulsification of the lens utilizing phaco chop was accomplished in 21.03 seconds at 16% power. Additional Xylocaine MPF was instilled into the anterior chamber. This was followed by removal of the remaining cortex under irrigation and aspiration as well as careful polishing of the posterior capsule in the capsule vacuum mode. The capsule was then stabilized with Provisc and a Bausch and Lomb model MX 60E 20.5 diopter posterior chamber intraocular lens was then injected into the capsular bag without difficulty. The remaining viscoelastic was removed from in and around the intraocular lens as well as the anterior chamber. The eye was then brought to normal intraocular pressure through the paracentesis port with balanced salt solution. He then received 2 drops of 0.5% timolol followed by 2 drops of moxifloxacin, was then lightly patched and shielded in the usual manner. There were no complications from the operation. He tolerated the procedure well and was returned to [facility] in good condition. MMYOKOL / IJN: [id number] /
== END 2021-03-13 12:20 | disposition home or self-care (01) ==
LOC: OR 08:33
PROVIDERS: ATTEND Ophthalmology
DX: H25.11 Age-related nuclear cataract, right eye (principal); H04.129 Dry eye syndrome of unspecified lacrimal gland; H40.1123 Primary open-angle glaucoma, left eye, severe stage; H40.1112 Primary open-angle glaucoma, right eye, moderate stage; H25.12 Age-related nuclear cataract, left eye; I10 Essential (primary) hypertension; H00.026 Hordeolum internum left eye, unspecified eyelid; H00.023 Hordeolum internum right eye, unspecified eyelid; D31.31 Benign neoplasm of right choroid
CPT/HCPCS: 66982; C1780; J2250; J0171; J3010; J2001

== ENCOUNTER 2021-03-27 08:11 | Day surgery (SDC) | payer MEDICARE ==
[2021-03-25 09:18] VITALS: BMI 27.1
[~2021-03-27 08:11] MED LIST changes: -DEXAMETHASONE SOD PHOSPHATE 4 MG/ML 1 ML VIAL IV ONE; -LIDOCAINE 1% (10MG/ML) FOR IV START INTRADERMA PRN; -ONDANSETRON 4 MG/2 ML VIAL IVP ONE
[2021-03-27 08:40] VITALS: TEMP 97.3
[2021-03-27] MEDS: CYCLOPENTOLATE 1% OPHTH SOLN 2 ML BTL OP PRN ×3 (08:44→08:57)
[2021-03-27] MEDS: PHENYLEPHRINE 2.5% OPHTH DRP 2ML OP PRN ×3 (08:47→09:00)
[2021-03-27] MEDS ORDERED: BALANCED SALT IRRIG SOLN COMB2 15 ML IRRIG.SOLN INTRAOCULA ONE (09:21)
[2021-03-27] MEDS ORDERED: HYALURONATE SODIUM INTRAOCULAR 1 EACH SYRINGE (12MG/ML) INTRAOCULA ONE (09:21)
[2021-03-27] MEDS ORDERED: LIDOCAINE 1% (PF) 10MG/ML VIAL MISCELLANE ONE (09:21)
[2021-03-27] MEDS ORDERED: fentaNYL (PF) 50 MCG/ML 2 ML AMP ONE (09:25)
[2021-03-27] MEDS ORDERED: MIDAZOLAM 2 MG/2 ML VIAL ONE (09:25)
[2021-03-27] MEDS ORDERED: LACTATED RINGERS 1,000 ML IV ONE (09:30)
[2021-03-27] MEDS ORDERED: CHONDROITIN-SOD HYALURONATE 1 EACH SYRINGE (0.75 ML) INTRAOCULA ONE (09:52)
[2021-03-27] MEDS ORDERED: EPINEPHrine (PF) 0.3 ML in BALANCED SALT IRRIG SOLN COMB2 500 ML IRRIGATION ONE (09:52)
[2021-03-27] MEDS ORDERED: TRYPAN BLUE 0.06% SYRINGE 0.5 ML SYRINGE INTRAOCULA ONE (09:52)
[2021-03-27] MEDS ORDERED: MOXIFLOXACIN HCL 0.5% DROPS 3 ML BTL LEFT EYE ONE (10:13)
--- NOTE | 2021-03-27 10:18 | P.OP ---
Date of Procedure: 03/27/21 Preoperative Diagnosis: NS & CS & POAG moderate Postoperative Diagnosis: same Procedure(s) Performed: PIOL & iStent inject Implants: [id number] 20.00 Anesthesia: MAC Surgeon: David Das Pathology: none sent Condition: stable Disposition: same day Indications for Procedure: blurry vision and improved glaucoma control Operative Findings: no complications
[2021-03-27 10:42] VITALS: BP 143/89; PULSE 80; RESP 20
--- NOTE | 2021-03-27 11:33 | OP ---
OPERATIVE REPORT DATE OF SURGERY: 03/27/2021 PROCEDURE: Phacoemulsification of cataract and intraocular lens implant with iStent inject implantation of the left eye. PREOPERATIVE DIAGNOSIS: Nuclear sclerosis, cortical sclerosis and primary open-angle glaucoma, moderate stage. POSTOPERATIVE DIAGNOSIS: Nuclear sclerosis, cortical sclerosis and primary open-angle glaucoma, moderate stage. SURGEON: Dr. David Das. ANESTHESIA: Topical. ESTIMATED BLOOD LOSS: None. SPECIMEN TAKEN: None. NARRATIVE: After obtaining the appropriate consent, the patient was brought to the operating room. There he was placed under cardiac monitoring, prepped and draped in the usual sterile manner. He was approached from his left temporal side, and at the 5 o'clock position an MVR blade was used to create a paracentesis port. Through this opening 1% Xylocaine MPF 50:50 mix with balanced salt solution was injected into the anterior chamber. This was followed by instillation of Trypan Blue, which was left in the eye for one minute. After the one minute's time, balanced salt solution was used to irrigate the Trypan Blue from the anterior chamber, and this was replaced with Viscoat to stabilize the anterior chamber. At the 3 o'clock position, a 2.5 mm keratome was used to create a self-sealing corneal flap incision. The patient was then asked to rotate his head approximately 45 degrees to his right, and the trabecular meshwork was viewed through a gonioscopy lens. Using an iStent inject device model G2W, two iStent devices were deployed on the nasal trabecular meshwork approximately 3 hours apart. The patient was then asked to rotate to the normal supine position and a cystotome was used to begin a continuous tear capsulorrhexis which was completed using the Utrata forceps. Hydrodissection and hydrodelineation of the lens was accomplished with balanced salt solution. Phacoemulsification utilizing phaco chop was accomplished in 17.58 seconds at 21% power. Additional Xylocaine MPF was instilled into the anterior chamber. This was followed by removal of the remaining cortex under irrigation and aspiration as well as careful polishing of the posterior capsule in the capsule vacuum mode. Provisc was then used to stabilize the capsular bag, and a Bausch and Lomb MX60E 20 diopter posterior chamber intraocular lens was then inserted into the capsular bag without difficulty. The remaining viscoelastic was removed from in and around the intraocular lens. The eye was brought to normal intraocular pressure through the paracentesis port and all wounds were confirmed watertight. He then received two drops of 0.5% timolol followed by two drops of 0.5% moxifloxacin. He was then lightly patched and shielded in the usual manner. There were no complication from the procedure. He tolerated the procedure well and was returned to [facility] in good condition. MMODL / IJN: [id number] /
== END 2021-03-27 10:59 | disposition home or self-care (01) ==
LOC: OR 08:11
PROVIDERS: ATTEND Ophthalmology
DX: H25.12 Age-related nuclear cataract, left eye (principal); H40.1123 Primary open-angle glaucoma, left eye, severe stage; H40.1132 Primary open-angle glaucoma, bilateral, moderate stage; H00.023 Hordeolum internum right eye, unspecified eyelid; H04.129 Dry eye syndrome of unspecified lacrimal gland; Z98.41 Cataract extraction status, right eye; Z96.1 Presence of intraocular lens; Z80.0 Family history of malignant neoplasm of digestive organs; Z98.890 Other specified postprocedural states; Z79.899 Other long term (current) drug therapy
CPT/HCPCS: 66984; 66183; C1780; C1783; J2250; J0171; J3010; J2001

== ENCOUNTER 2023-01-19 07:00 | Inpatient (IN) | payer MEDICARE ==
[2023-01-19] MEDS ORDERED: SODIUM CHLORIDE 0.9% 500 ML 500 ML IV STA (07:26)
--- NOTE | 2023-01-19 07:29 | ED ---
General Adult HPI - General Chief complaint: Weakness Stated complaint: Can't walk Time Seen by Provider: 01/19/23 07:07 Source: patient Mode of arrival: wheelchair Limitations: no limitations - History of Present Illness Initial comments: Dictation was produced using [employer] dictation software. please excuse any grammatical, word or spelling errors. Chief Complaint: 87-year-old male witha past medical history presents to the ER with 2 days of left lower extremity weakness History of Present Illness: 87-year-old male presents to the emergency Department with approximately 2 days of left lower extremity weakness. States that yesterday he woke up and went to the bathroom. He walked out of the bathroom after taking his usual activity and all of a sudden felt like he couldn't walk with his left leg. States that he can barely ambulate due to significant weakness to his left lower extremity. He also feels like he can't control it. Denies any numbness or paresthesias. No history of stroke. Denies any headache. No pain complaints The ROS documented in this emergency department record has been reviewed and confirmed by me. Those systems with pertinent positive or negative responses have been documented in the HPI. All other systems are other negative and/or noncontributory. - Related Data Home Medications Medication Instructions Recorded Confirmed No Known Home Medications 01/19/23 01/19/23 Allergies Allergy/AdvReac Type Severity Reaction Status Date / Time No Known Allergies Allergy Verified 01/19/23 09:32 Review of Systems ROS Statement: Those systems with pertinent positive or pertinent negative responses have been documented in the HPI. ROS Other: All systems not noted in ROS Statement are negative. Past Medical History Past Medical History: Eye Disorder, Prostate Disorder Additional Past Medical History / Comment(s): BPH, diverticular dx, bilateral eye cataracts/glaucoma. History of Any Multi-Drug Resistant Organisms: None Reported Past Surgical History: Back Surgery, Tonsillectomy Additional Past Surgical History / Comment(s): Lumbar spine surgery with Coflex clip, colonoscopy, cataract removed right eye Past Anesthesia/Blood Transfusion Reactions: No Reported Reaction Past Psychological History: No Psychological Hx Reported Smoking Status: Never smoker - Past Family History Father Family Medical History: COPD Additional Family Medical History / Comment(s): Father was a smoker. He lived t be 83 yrs old. Mother Family Medical History: Cancer Additional Family Medical History / Comment(s): Colon cancer. Mother is 98yrs old. General Exam - General Exam Comments Initial Comments: PHYSICAL EXAM: General Impression: Alert and oriented x3, not in acute distress HEENT: Normocephalic atraumatic, extra-ocular movements intact, pupils equal and reactive to light bilaterally, mucous membranes moist. Cardiovascular: Heart regular rate and rhythm Chest: Able to complete full sentences, no retractions, no tachypnea Abdomen: abdomen soft, non-tender, non-distended, no organomegaly Musculoskeletal: Pulses present and equal in all extremities, no peripheral edema Motor: no focal deficits noted Neurological: CN II-XII grossly intact, drift to the left lower extremity, unable to ambulate due to significant weakness in the left lower extremity., No hyperreflexia or clonus to the left lower extremity Skin: Intact with no visualized rashes Psych: Normal affect and mood Limitations: no limitations Course Vital Signs 01/19/23 01/19/23 07:08 08:35 Temperature 97.7 F Pulse Rate 77 65 Respiratory 16 18 Rate Blood Pressure 164/93 171/87 O2 Sat by Pulse 98 96 Oximetry EKG Findings - EKG Comments: EKG Findings:: My EKG interpretation: Ventricular rate 72, sinus rhythm,. Interval 177, QRS 106, QTC 425. No ID prolongation, no QTC prolongation, no ST or T-wave changes noted. . Overall, this EKG is unremarkable Medical Decision Making - Medical Decision Making Was pt. sent in by a medical professional or institution (, PA, INSTALLATION SERVICE REPRESENTATIVE, urgent care, hospital, or shelter...) When possible be specific @ -No Did you speak to anyone other than the patient for history (EMS, parent, family, police, friend...)? What history was obtained from this source @ -No Did you review nursing and triage notes (agree or disagree)? Why? @ -I reviewed and agree with nursing and triage notes Were old charts reviewed (outside hosp., previous admission, EMS record, old EKG, old radiological studies, urgent care reports/EKG's, shelter records)? Report findings @ -No old charts were reviewed Differential Diagnosis (chest pain, altered mental status, abdominal pain women, abdominal pain men, vaginal bleeding, musculoskeletal, weakness, fever, dyspnea, syncope, headache, dizziness, GI bleed, back pain, seizure, CVA, palpatations, mental health)? @ - Differential CVA: Ischemic stroke, hemorrhagic stroke, brain tumor, atypical migraine, Wernicke's encephalopathy, seizure, multiple sclerosis, meningitis, encephalitis, hypoglycemia, Guillain-Menjivar, electrolytes disturbance, myasthenia gravis.... This is not meant to be an all-inclusive list EKG interpreted by me (3pts min.). @ -See above X-rays interpreted by me (1pt min.). @ -Two-view chest x-ray is unremarkable CT interpreted by me (1pt min.). @ -Computed tomography scan of brain and CT angiography of the head and neck shows no acute processes U/S interpreted by me (1pt. min.). @ -None done What testing was considered but not performed or refused? (CT, X-rays, U/S, labs)? Why? @ -None What meds were considered but not given or refused? Why? @ -None Did you discuss the management of the patient with other professionals (professionals i.e. , PA, INSTALLATION SERVICE REPRESENTATIVE, lab, RT, psych nurse, manager social responsibility, coal or ore controller, teacher, credit products officer, case picker)? Give summary @ -discussed with nurse practitioner Roel for hospitalist admission Was smoking cessation discussed for >3mins.? @ -No Was critical care preformed (if so, how long)? @ -No Were there social determinants of health that impacted care today? How? (Homelessness, low income, unemployed, alcoholism, drug addiction, tr ansportation, low edu. Level, literacy, decrease access to med. care, fdc, rehab)? @ -No Was there de-escalation of care discussed even if they declined (Discuss DNR or withdrawal of care, Hospice)? DNR status @ -No What co-morbidities impacted this encounter? (DM, HTN, Smoking, COPD, CAD, Cancer, CVA, ARF, Chemo, Hep., AIDS, mental health diagnosis, sleep apnea, morbid obesity)? @ -None Was patient admitted / discharged? Hospital course, mention meds given and route, prescriptions, significant lab abnormalities, going to OR and other pertinent info. @ - 87 Year-old male presents with almost 48 hours of left lower extremity weakness. His clinical presentation worrisome for CVA. Vital signs stable. Patient is a score of 4-5. He is outside the window for alteplase no large vessel occlusion on CT angiography. No hemorrhage intracranially. Patient giv en aspirin will be admitted with consultation to neurology. Undiagnosed new problem with uncertain prognosis? @ -No Drug Therapy requiring intensive monitoring for toxicity (Heparin, Nitro, Insulin, Cardizem)? @ -No Were any procedures done? @ -No Diagnosis/symptom? Acute, or Chronic, or Acute on Chronic? Uncomplicated (without systemic symptoms) or Complicated (systemic symptoms)? @ -CVA Side effects of treatment? @ -No Exacerbation, Progression, or Severe Exacerbation? @ -No Poses a threat to life or bodily function? How? (Chest pain, USA, IA, pneumonia, PE, COPD, DKA, ARF, appy, cholecystitis, CVA, Diverticulitis, Homicidal, Suicidal, threat to staff... and all critical care pts) @ -yes - Lab Data Result diagrams: 01/19/23 07:36 01/19/23 07:36 Lab Results 01/19/23 01/19/23 01/19/23 Range/Units 07:36 07:36 07:36 WBC 8.2 (3.8-10.6) k/uL RBC 5.11 (4.30-5.90) m/uL Hgb 15.8 (13.0-17.5) gm/dL Hct 45.7 (39.0-53.0) % MCV 89.4 (80.0-100.0) fL MCH 30.8 (25.0-35.0) pg MCHC 34.5 (31.0-37.0) g/dL RDW 14.0 (11.5-15.5) % Plt Count 205 (150-450) k/uL MPV 9.8 Neutrophils % 64 % Lymphocytes % 20 % Monocytes % 7 % Eosinophils % 8 % Basophils % 0 % Neutrophils # 5.2 (1.3-7.7) k/uL Lymphocytes # 1.7 (1.0-4.8) k/uL Monocytes # 0.5 (0-1.0) k/uL Eosinophils # 0.6 (0-0.7) k/uL Basophils # 0.0 (0-0.2) k/uL PT 10.8 (10.0-12.5) sec INR 1.0 (<1.2) APTT 23.8 (22.0-30.0) sec Sodium 142 (137-145) mmol/L Potassium 3.9 (3.5-5.1) mmol/L Chloride 109 H (98-107) mmol/L Carbon Dioxide 24 (22-30) mmol/L Anion Gap 9 mmol/L BUN 16 (9-20) mg/dL Creatinine 0.76 (0.66-1.25) mg/dL Est GFR (CKD-EPI)AfAm >90 (>60 ml/min/1.73 sqM) Est GFR (CKD-EPI)NonAf 83 (>60 ml/min/1.73 sqM) Glucose 99 (74-99) mg/dL Calcium 9.3 (8.4-10.2) mg/dL Total Bilirubin 1.0 (0.2-1.3) mg/dL AST 30 (17-59) U/L ALT 24 (4-49) U/L Alkaline Phosphatase 101 (38-126) U/L Creatine Kinase 60 (55-170) U/L Troponin I (0.000-0.034) ng/mL Total Protein 6.9 (6.3-8.2) g/dL Albumin 3.9 (3.5-5.0) g/dL 01/19/23 Range/Units 07:36 WBC (3.8-10.6) k/uL RBC (4.30-5.90) m/uL Hgb (13.0-17.5) gm/dL Hct (39.0-53.0) % MCV (80.0-100.0) fL MCH (25.0-35.0) pg MCHC (31.0-37.0) g/dL RDW (11.5-15.5) % Plt Count (150-450) k/uL MPV Neutrophils % % Lymphocytes % % Monocytes % % Eosinophils % % Basophils % % Neutrophils # (1.3-7.7) k/uL Lymphocytes # (1.0-4.8) k/uL Monocytes # (0-1.0) k/uL Eosinophils # (0-0.7) k/uL Basophils # (0-0.2) k/uL PT (10.0-12.5) sec INR (<1.2) APTT (22.0-30.0) sec Sodium (137-145) mmol/L Potassium (3.5-5.1) mmol/L Chloride (98-107) mmol/L Carbon Dioxide (22-30) mmol/L Anion Gap mmol/L BUN (9-20) mg/dL Creatinine (0.66-1.25) mg/dL Est GFR (CKD-EPI)AfAm (>60 ml/min/1.73 sqM) Est GFR (CKD-EPI)NonAf (>60 ml/min/1.73 sqM) Glucose (74-99) mg/dL Calcium (8.4-10.2) mg/dL Total Bilirubin (0.2-1.3) mg/dL AST (17-59) U/L ALT (4-49) U/L Alkaline Phosphatase (38-126) U/L Creatine Kinase (55-170) U/L Troponin I <0.012 (0.000-0.034) ng/mL Total Protein (6.3-8.2) g/dL Albumin (3.5-5.0) g/dL Disposition Clinical Impression: CVA (cerebral vascular accident) Disposition: ADMITTED IP TO THIS HOSP Condition: Fair Referrals: Zeeshan Bowman MD [Primary Care Provider] - 1-2 days Decision Time: 10:21
[2023-01-19 08:05] LABS: Partial Thromboplastin Time 23.8 sec (22.0-30.0); Prothrombin Time 10.8 sec (10.0-12.5)
[2023-01-19 08:16] LABS: ALT 24 U/L (4-49); AST 30 U/L (17-59); African American GFR (CKD) >90 (>60 ml/min/1.73 sqM); Albumin 3.9 g/dL (3.5-5.0); Alkaline Phosphatase 101 U/L (38-126); Anion Gap 9 mmol/L; Blood Urea Nitrogen 16 mg/dL (9-20); Calcium 9.3 mg/dL (8.4-10.2); Carbon Dioxide 24 mmol/L (22-30); Chloride 109 mmol/L (98-107); Creatine Kinase 60 U/L (55-170); Glucose 99 mg/dL (74-99); Non-African American GFR(CKD) 83 (>60 ml/min/1.73 sqM); Potassium 3.9 mmol/L (3.5-5.1); Sodium 142 mmol/L (137-145); Total Protein 6.9 g/dL (6.3-8.2)
--- NOTE | 2023-01-19 08:18 | XR ---
EXAMINATION TYPE: XR chest 2V DATE OF EXAM: 01/19/2023 8:14 AM COMPARISON: None TECHNIQUE: XR chest 2V Frontal and lateral views of the chest. CLINICAL INDICATION:Male, 87 years old with history of altered mental status; FINDINGS: Lungs/Pleura: There is no evidence of pleural effusion, focal consolidation, or pneumothorax. Pulmonary vascularity: Unremarkable. Heart/mediastinum: Cardiomediastinal silhouette is enlarged. Musculoskeletal: Multiple level degenerative disc disease changes seen throughout the spine. Bilatera l shoulder arthropathy. IMPRESSION: 1. No acute pulmonary process. 2. Cardiomegaly.
[2023-01-19 08:22] LABS: Basophils % (A) 0 %; Eosinophils # (A) 0.6 k/uL (0-0.7); Eosinophils % (A) 8 %; HCT 45.7 % (39.0-53.0); HGB 15.8 gm/dL (13.0-17.5); Lymphocytes # (A) 1.7 k/uL (1.0-4.8); Lymphocytes % (A) 20 %; MCH 30.8 pg (25.0-35.0); MCHC 34.5 g/dL (31.0-37.0); MCV 89.4 fL (80.0-100.0); Mean Platelet Volume 9.8; Monocytes # (A) 0.5 k/uL (0-1.0); Monocytes % (A) 7 %; Neutrophils # (A) 5.2 k/uL (1.3-7.7); Neutrophils % (A) 64 %; Platelet Count 205 k/uL (150-450); RBC 5.11 m/uL (4.30-5.90); WBC 8.2 k/uL (3.8-10.6)
--- NOTE | 2023-01-19 09:28 | CT ---
EXAMINATION TYPE: CT brain wo con DATE OF EXAM: 01/19/2023 COMPARISON: None INDICATION: left side weakness, unable to walk using left leg since yesterday DLP: 1567.4 mGycm, Automated exposure control for dose reduction was used. CONTRAST: None CT of the brain is performed utilizing 3 mm thick sections through the posterior fossa and 3 mm thick sections through the remaining calvarium. Study is performed within 24 hours of arrival to the hosp ital. No abnormal hyperdensity is present to suggest an acute intracranial hemorrhage. No mass lesion is evident. No acute infarcts are evident. Hypodensity is present bilaterally in the periventricular white matter likely on the basis of chronic white matter ischemic changes. An old lacunar infarct within the left basal ganglion. Ventricles and sulci are appropriate for the patient age. Mucosal thickening is within the bilateral maxillary sinuses and within ethmoid region and posterior inferior frontal sinus regions. Prior uncinectomies and ethmoidectomies are evident. Sphenoid sinuses and mastoid air cells appear clear. IMPRESSION: 1. No acute intracranial process. Follow-up MRI can be performed as clinically indicated. 2. Patchy periventricular white matter hypodensity, likely on the basis of chronic white matter ische debbie changes. 3. Old appearing left basal ganglion lacunar infarct.
--- NOTE | 2023-01-19 09:31 | CT ---
EXAMINATION TYPE: CT angio head neck DATE OF EXAM: 01/19/2023 HISTORY: left side weakness, unable to walk using left leg since yesterday COMPARISON: None CT DLP: 1567.4 mGycm. Automated Exposure Control for Dose Reduction was Utilized. TECHNIQUE: CTA scan of the neck is performed with IV Contrast, patient injected with 65 mL of Isovue 370, axial images are obtained, coronal and sagittal reformatted images are reviewed. Three-D recons tructed images are created on an independent workstation and reviewed. Source images are reviewed. FINDINGS: Carotid/Vascular Structures: There is a 3 vessel arch. Common carotid arteries bifurcate into internal and external carotid arteries without significant timmy w limiting stenosis. Atheromatous plaquing is present at the carotid bifurcations. No significant timmy w-limiting stenosis identified. Vertebral arteries are codominant. Internal carotid arteries and vertebral arteries are patent to the skull base. Cervical of Awad: Vertebral basilar system appears normal. Posterior cerebral vasculature is unrema rkable. Internal carotid arteries bifurcate normally into A1 and M1 segments. A2 segments are normal. The anterior communicating artery is patent. The right posterior communicating artery is patent. The left posterior communicating artery is patent. IMPRESSION: 1. Atheromatous calcification without flow-limiting stenosis bilateral carotid bifurcations. 2. Normal [place] of [place] NASCET criteria was used in interpretation of this exam?
[2023-01-19] MEDS ORDERED: ASPIRIN 81 MG PO STA (09:34)
[2023-01-19] MEDS ORDERED: NALOXONE 0.4 MG/ML 1 ML VIAL IV PRN (10:16)
[2023-01-19] MEDS ORDERED: DOCUSATE 100 MG CAP PO PRN (10:48)
[2023-01-19] MEDS ORDERED: ACETAMINOPHEN TAB 325 MG TAB PO PRN (10:48)
--- NOTE | 2023-01-19 10:48 | P.HPIM ---
History of Present Illness H&P Date: 01/19/23 History of Presenting Illness: Patient is a very pleasant 87-year-old male with a reported past medical history of BPH, hypertension, cataracts and glaucoma status post surgery, and chronic back pain status post lumbar spine surgeries. Patient and patient's at bedside states patient does not take any prescribed medications as they only believe in natural remedies and holistic medications. Patient reports taking multiple [id number] vitamins and remedies for blood pressure control and help with his urinary retention resulting from his BPH. He denies having a ca rdiac history or history of previous TIA or CVA. He presented to the emergency department today secondary to complaints of left lower extremity weakness and numbness times greater than 24 hours. Patient reports yesterday morning awakening with weakness/numbness to his left leg. Patient reports he had to get ready for caodaism so he can order it for a little while and the symptoms seemed to improve only to return later in the day and again go away. Patient reports he went to bed last night and upon awakening this morning his left lower extremity weakness and numbness was persistent so he came to the emergency department for evaluation. Patient denies having any other symptoms including headache, lightheadedness, dizziness, changes in vision or hearing, weakness/tingling/numbness in his face or upper extremities, difficulties with or changes in his speech or memory, nausea, vomiting, difficulties with her changes in urinary function, and denies having any numbness/tingling/weakness/sw elling in his right lower extremity. Patient states his left leg just feels heavy in the numbness/weird feeling. Patient reports he can feel when he touches it but something is just different. He underwent full evaluation in the emergency department. Per ED physician NIH score 4 upon arrival. Blood glucose was 99. EKG revealed normal sinus rhythm at 72 bpm with inferior T-wave inversion in leads 2, 3, and aVF otherwise no noted T-wave or ST abnormalities upon personal review and interpretation. Vital signs reviewed showing blood pressure 164/93, heart rate 77, respiratory rate 16, temp 97.7F, SpO2 of 98% on room air. CT brain was negative for acute intercranial process with radiology report stating patchy periventricular white matter hypodensity possibly on the basis of chronic white matter ischemic changes along with an old-appearing left basal ganglia lacunar infarct. CTA head and neck revealed atheromatous calcification without flow-limiting stenosis to bilateral carotid bifurcations and a normal [place] of [place]. Labs completed and reviewed. CBC, coagulation profile, and CMP were unremarkable. Troponin was less than 0.012. Chest x-ray was completed revealing cardiomegaly and negative for acute cardiopulmonary process. Patient was admitted under our services to medical surgical unit with telemetry to undergo continued close neurological monitoring and workup. Neurology was consulted for evaluation. Review of systems: Pertinent positives and negatives as discussed in HPI, a complete review of systems was performed and all other systems are negative. Physical exam: Vital signs reviewed and stable. General: Nontoxic, no distress and appears stated age. Derm: Skin warm and dry, normal coloration for ethnicity. Head: Atraumatic, normocephalic and symmetric. Eyes: EOMs intact, no lid lag, and anicteric sclera Mouth: no lip lesions, mucus membranes moist Cardiovascular: regular rate and rhythm with normal S1S2, no murmur, positive posterior tibial pulses bilaterally, and cap refill < 2 seconds. Lungs: Respirations even, regular, and unlabored on room air. Lungs CTA bilaterally, no rhonchi, no rales, no wheezing, and no accessory muscle usage. Abdominal: soft, nontender to palpation, no guarding, no appreciable organomegaly Ext: ROM intact. No gross muscle atrophy, no edema, no contractures Neuro: Speech clear, face symmetrical and CN II-XII grossly intact, movement and sensation was intact and equal in bilateral lower extremities. However patient did have some noted weakness in left lower extremity and drift when he attempted to hold upright. Patient did have normal cymt-bi-iobt testing and no arm drift or weakness in upper extremities. Psych: Alert and oriented to person, place, time, and situation. Appropriate and pleasant affect. Assessment and Plan of Care: Left lower extremity weakness and numbness, rule out CVA History of chronic lower back status post lumbar spine surgeries Hypertension History of cataracts and glaucoma status post surgery -Per ED physician NIH score 4 upon arrival. Blood glucose was 99. -Consult placed to neurologist -Order placed for NIH stroke scale with neuro checks every 4 hours -Telemetry monitoring -Fall precautions -Consult placed to PT/OT -Echocardiogram to be completed -Lipid profile and hemoglobin A1c to be drawn with a.m. labs -Patient started on daily aspirin 81 mg and atorvastatin 40 mg -Order placed for CT lumbar spine secondary to patient's continued left lower e xtremity weakness Data and imaging reviewed: -EKG revealed normal sinus rhythm at 72 bpm with inferior T-wave inversion in leads 2, 3, and aVF otherwise no noted T-wave or ST abnormalities upon personal review and interpretation. -Vital signs reviewed showing blood pressure 164/93, heart rate 77, respiratory rate 16, temp 97.7F, SpO2 of 98% on room air. -CT brain was negative for acute intercranial process with radiology report stating patchy periventricular white matter hypodensity possibly on the basis of chronic white matter ischemic changes along with an old-appearing left basal ganglia lacunar infarct. -CTA head and neck revealed atheromatous calcification without flow-limiting stenosis to bilateral carotid bifurcations and a normal [place] of [place]. -Labs completed and reviewed. CBC, coagulation profile, and CMP were unremarkable. Troponin was less than 0.012. -Chest x-ray was completed revealing cardiomegaly and negative for acute cardiopulmonary process. Patient was admitted under our services to medical surgical unit with telemetry to undergo continued close neurological monitoring and workup. CODE STATUS: Full code DVT prophylaxis: Heparin Anticipated discharge date: Clinical course to determine Anticipated discharge place: home Patient was seen independently by Nurse Practitioner. This document was prepared using [employer] dictation software. Please allow for errors in plant electrician while rare they do occur. Past Medical History Past Medical History: Eye Disorder, Prostate Disorder Additional Past Medical History / Comment(s): BPH, diverticular dx, bilateral eye cataracts/glaucoma. History of Any Multi-Drug Resistant Organisms: None Reported Past Surgical History: Back Surgery, Tonsillectomy Additional Past Surgical History / Comment(s): Lumbar spine surgery with Coflex clip, colonoscopy, cataract removed right eye Past Anesthesia/Blood Transfusion Reactions: No Reported Reaction Past Psychological History: No Psychological Hx Reported Smoking Status: Never smoker - Past Family History Father Family Medical History: COPD Additional Family Medical History / Comment(s): Father was a smoker. He lived t be 83 yrs old. Mother Family Medical History: Cancer Additional Family Medical History / Comment(s): Colon cancer. Mother is 98yrs old. Medications and Allergies Home Medications Medication Instructions Recorded Confirmed Type No Known Home Medications 01/19/23 01/19/23 History Allergies Allergy/AdvReac Type Severity Reaction Status Date / Time No Known Allergies Allergy Verified 01/19/23 09:32 Physical Exam Vitals: Vital Signs Temp Pulse Resp BP Pulse Ox 01/19/23 09:00 82 18 179/99 98 01/19/23 08:35 65 18 171/87 96 01/19/23 07:08 97.7 F 77 16 164/93 98 Intake and Output 01/18/23 01/19/23 01/19/23 22:59 06:59 14:59 Other: Weight 77.111 kg Results CBC & Chem 7: 01/19/23 07:36 01/19/23 07:36 Labs: Abnormal Lab Results - Last 24 Hours (Table) 01/19/23 Range/Units 07:36 Chloride 109 H (98-107) mmol/L
[2023-01-19] MEDS: ATORVASTATIN 40 MG TAB PO SCH (11:21)
[2023-01-19] MEDS: SODIUM CHLORIDE 0.9% 1,000 ML IV SCH (11:21)
--- NOTE | 2023-01-19 15:24 | P.CNNES ---
History of Present Illness Consult date: 01/19/23 Requesting physician: Gonzalo Birmingham Reason for Consult: CVA History of Present Illness: Patient is a 87-year-old right-handed male with no significant past medical history except some arthritis, came to the hospital today at 7 AM for intermittent right leg weakness. Patient says that he woke up yesterday morning and noticed his left leg was not functioning properly. He took a shower, and would end to fall to the left. He did not fall, but caught himself. The symptoms lasted for an hour, he went to sleep, and about after waking up 2 hours later, the symptoms are gone. He was fine rest of the day. He wants a football game. He states that he went to sleep at 11:30 PM last night. This morning he woke up at 7 AM and the symptoms came back, and the left leg would not hold him up. He is still weak in the left leg. Denies any numbness or tingling in the lower limbs. He claims of having only weakness in the left leg but no numbness. He denies any symptoms in the upper extremities whatsoever, no problem with the facial droop, slurred speech, any visual problems. He says that he feels that if he gets up, will fall. He had recent cataract surgeries. Vital signs on arrival but pressure 164/93, pulse rate 77 to prevent 7.9. CBC, PT/PTT normal, CMP normal. Troponin negative. CT head revealed no acute intracranial process. Patchy periventricular White better hypodensity, likely on the basis of chronic white matter ischemic change. 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 I personally reviewed CT head, agree with the findings. Chest x-ray showed no acute pulmonary process. Cardiomegaly. EKG with sinus rhythm, left axis deviation. Patient states that he has chronic low back pain, had undergone lumbar surgery L3-L4 by Dr. Colindres and underwent coflex clip placement in April 2018. He denies any tobacco or alcohol. Patient has history of hypertension, but takes only some natural medication. He denies diabetes. He does have BPH, and takes natural medications. He does not take any antiplatelet medication at home. Review of Systems Constitutional: Denies chills, Denies fever Eyes: denies blurred vision, denies diplopia, denies pain Ears: bilateral: decreased hearing, deny: ear discharge Ears, nose, mouth and throat: Denies headache, Denies sore throat Cardiovascular: Denies chest pain, Denies shortness of breath Respiratory: Denies cough, Denies excessive sputum Gastrointestinal: Denies abdominal pain, Denies diarrhea, Denies nausea, Denies vomiting Genitourinary: Reports hematuria (Sometimes), Reports nocturia, Reports urinary frequency Musculoskeletal: Reports low back pain, Reports neck pain, Denies myalgias Integumentary: Denies pruritus, Denies rash Neurological: Reports as per HPI Psychiatric: Denies anxiety, Denies depression Endocrine: Denies fatigue, Denies weight change Hematologic/Lymphatic: Denies easy bleeding, Denies easy bruising Past Medical History Past Medical History: Eye Disorder, Prostate Disorder Additional Past Medical History / Comment(s): BPH, diverticular dx, bilateral eye cataracts/glaucoma. History of Any Multi-Drug Resistant Organisms: None Reported Past Surgical History: Back Surgery, Tonsillectomy Additional Past Surgical History / Comment(s): Lumbar spine surgery with Coflex clip, colonoscopy, cataract removed right eye Past Anesthesia/Blood Transfusion Reactions: No Reported Reaction Past Psychological History: No Psychological Hx Reported Smoking Status: Never smoker - Past Family History Father Family Medical History: COPD Additional Family Medical History / Comment(s): Father was a smoker. He lived t be 83 yrs old. Mother Family Medical History: Cancer Additional Family Medical History / Comment(s): Colon cancer. Mother is 98yrs old. Medications and Allergies Home Medications Medication Instructions Recorded Confirmed Type No Known Home Medications 01/19/23 01/19/23 History Allergies Allergy/AdvReac Type Severity Reaction Status Date / Time No Known Allergies Allergy Verified 01/19/23 09:32 Physical Examination - Vital Signs Vital Signs: Vital Signs Temp Pulse Resp BP Pulse Ox 01/19/23 09:00 82 18 179/99 98 01/19/23 08:35 65 18 171/87 96 01/19/23 07:08 97.7 F 77 16 164/93 98 Intake and Output 01/18/23 01/19/23 01/19/23 22:59 06:59 14:59 Other: Weight 77.111 kg Patient is an elderly male, very pleasant in no acute distress. Patient is alert awake oriented to time place and person. Speech and language functions are normal. Patient can name and repeat very well. No aphasia or dysarthria. Attention, concentration and fund of knowledge is adequate. On cranial nerve examination, pupils are unequal, left pupil is smaller as compared to the right. Both are reactive to light. His visual law are full on confrontation, with no neglect on double simultaneous stimulation. Extraocular muscles are intact with no nystagmus. Face is symmetric, tongue protrudes to the midline. Palatal elevation and sensation normal, hearing is moderately decreased which is chronic and shoulder shrug normal, facial sensation normal. On muscle strength testing, there is no pronator drift and the strength is normal in arms and legs distally and proximally, except left hip flexion which is 5-as compared to the right. Deep tendon reflexes are symmetric, with biceps 1+, brachioradialis 1+, knees 2, ankles 1, plantars downgoing bilaterally. Sensory to touch is equal with no neglect on double simultaneous stimulation. Cerebellar function showed no ataxia for etefme-mf-zpyu testing. No dysdia dochokinesia. No ataxia for zrpx-tl-bzin testing on either side. Tone and bulk of muscles normal. Gait deferred.. On general examination, there is no carotid bruit or murmur, S1-S2 audible. Chest is clear on consultation. Abdomen is soft nontender. No organomegaly, bowel sounds present. Peripheral pulses are present. No edema. left calf appears slightly bigger as compared to the right. Results - Laboratory Findings CBC and BMP: 01/19/23 07:36 10 07:36 Abnormal Lab Findings: Abnormal Labs 01/19/23 07:36 Chloride 109 H Assessment and Plan Assessment: * Possible stroke/TIA manifesting with left leg weakness. Symptoms occurred yesterday, resolved in 1 hour. Today's symptoms reappeared on waking up, and are still present. Rest of the examination is completely nonfocal. Current NIH stroke scale is 0. * Anisocoria, likely related to his previous cataract surgery. * Hypertension * History of low back surgery * Chronic neck and back pain. Plan: * MRI of the brain without contrast, evaluate for acute CVA * 2-D echo with bubble study to rule out PFO * CTA head and neck showed: Atheromatous calcification without flow limiting stenosis bilateral carotid bifurcation. Normal mechoopda of Awad. * Patient not a candidate for TPA because of symptoms occurring on waking up, and low NIH stroke scale. * Fasting a.m. lipid panel * Hemoglobin A1c * Permissive hypertension for next 24-48 hours * Close neuro checks as per protocol. * Patient has been loaded with aspirin 324 mg in the ER. Agree with maintaining aspirin 81 mg daily. Patient was not on any antiplatelet medication at home. Patient has history of BPH, sometimes gets hematuria. Would avoid DAPT. * Telemetry monitoring rule out any arrhythmia * If the stroke workups comes back negative, we will consider checking MRI of the cervical and lumbar spine. Patient does have chronic neck and back pain, but denies any worsening of symptoms in the last few weeks. No falls. * DVT prophylaxis: Heparin 5000 units subcu every 12 hours * PT, OT evaluate gait. * Neurology will continue ot follow. Thank you for the consult.
--- NOTE | 2023-01-19 20:32 | CT ---
EXAMINATION TYPE: CT lumbar spine wo con DATE OF EXAM: 01/19/2023 COMPARISON: None HISTORY: 87-year-old male Left sided weakness and difficulty walking. TECHNIQUE: Contiguous axial scanning of the lumbar spine without IV contrast. Coronal and sagittal re constructions performed. CT DLP: 1333.6 mGycm Automated exposure control for dose reduction was used. FINDINGS: [facility] throughout the visualized lower thoracic and upper lumbar spine. Hypertrophic facet arthropathy throughout. There is intraspinous fusion at L3-L4 with fixed grade 1 anterolisthesis L3-L4. Grade 1 r etrolisthesis L2-L3. Remaining alignment is maintained. Moderate degenerative disc disease throughout. There appears to be underlying congenital spinal canal narrowing with AP canal dimension of 1.3 cm. Further narrowing secondary to disc osteophyte complexes at multiple levels. This results in moderate to severe focal spinal canal stenosis at L2-L3 and moderate at L1-L2. Moderate at L3-L4 and mild at both L4-L5 and L5-S1. Anterior interbody ankylosis L4-S1 levels.. On the left, there is severe neuroforaminal stenosis at L3-L4 and L5-S1. Moderate at multiple additio nal levels. On the right, there is moderate to severe neuroforaminal stenosis at L1-L2, L2-L3, and L3-L4. Moderat e at additional levels. Small hiatal hernia. Sigmoid diverticulosis. Diverticular changes of the bladder wall. There is prono unced soft tissue impressing onto the base of the bladder. IMPRESSION: 1. DISH THROUGHOUT. THERE IS POSTERIOR INTERSPINOUS FUSION AT L3-L4. THE REMAINING LEVELS SHOW VARYIN G DEGREES OF BONY BRIDGING. 2. FIXED DEGENERATIVE GRADE 1 ANTEROLISTHESIS L3-L4 AND GRADE 1 RETROLISTHESIS L2-L3. 3. 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 THERE IS OVERALL MO DERATE TO SEVERE FOCAL SPINAL CANAL STENOSIS AT L2-L3. MODERATE AT L1-L2 AND L3-L4. MILD AT ADDITIONA L LEVELS. 4. VARIABLE NEURAL FORAMINAL STENOSES OUTLINED ABOVE. 5. THERE IS SEVERE PROSTATOMEGALY. CORRELATE WITH PATIENT'S SYMPTOMS AND PSA VALUES. UROLOGY FOLLOW-U P CLINICALLY INDICATED.
[2023-01-19] MEDS: HEPARIN SODIUM,PORCINE 5,000 UNIT/ML 1 ML VIAL SQ SCH (20:40)
[2023-01-20 08:05] LABS: Basophils % (A) 0 %; Eosinophils # (A) 0.8 k/uL (0-0.7); Eosinophils % (A) 10 %; HGB 15.2 gm/dL (13.0-17.5); Lymphocytes % (A) 26 %; MCH 30.6 pg (25.0-35.0); MCHC 33.1 g/dL (31.0-37.0); MCV 92.5 fL (80.0-100.0); Mean Platelet Volume 8.5; Monocytes # (A) 0.4 k/uL (0-1.0); Monocytes % (A) 6 %; Neutrophils # (A) 4.5 k/uL (1.3-7.7); Neutrophils % (A) 57 %; Platelet Count 188 k/uL (150-450); RBC 4.97 m/uL (4.30-5.90); RDW 13.9 % (11.5-15.5); WBC 7.9 k/uL (3.8-10.6)
[2023-01-20 08:27] LABS: ALT 26 U/L (4-49); AST 30 U/L (17-59); African American GFR (CKD) >90 (>60 ml/min/1.73 sqM); Alkaline Phosphatase 106 U/L (38-126); Anion Gap 8 mmol/L; Blood Urea Nitrogen 14 mg/dL (9-20); Calcium 9.3 mg/dL (8.4-10.2); Carbon Dioxide 26 mmol/L (22-30); Chloride 109 mmol/L (98-107); Glucose 89 mg/dL (74-99); Non-African American GFR(CKD) 83 (>60 ml/min/1.73 sqM); Sodium 143 mmol/L (137-145)
[2023-01-20] MEDS: ATORVASTATIN 40 MG TAB PO SCH (09:49)
[2023-01-20] MEDS: HEPARIN SODIUM,PORCINE 5,000 UNIT/ML 1 ML VIAL SQ SCH ×2 (09:49→21:36)
[2023-01-20] MEDS: ASPIRIN 81 MG PO SCH (09:49)
[2023-01-20 10:44] LABS: T4, Free (Free Thyroxine) 1.03 ng/dL (0.78-2.19)
[2023-01-20] MEDS: SODIUM CHLORIDE 0.9% 1,000 ML IV SCH (12:20)
--- NOTE | 2023-01-20 12:40 | P.PN ---
Subjective Progress Note Date: 01/20/23 Patient was seen for a follow-up. Patient says that his left leg still feels weak, trouble standing. He is noticing pain behind his left eye, then goes to the 4 head. He denies any nausea vomiting any hoarseness or slurred speech. Patient states that when he turns his head fast, he feels dizzy, but that is not new, has history of vertigo for long time. Patient's was also present, who informed me that patient fell off the roof in the garage about 10 feet onto the cement about 15 years ago. Fortunately he did not suffer much injuries. He denies any new numbness tingling focal weakness otherwise. Objective - Vital Signs Vital signs: Vital Signs Temp 97.9 F 01/20/23 04:30 Pulse 105 H 01/20/23 08:00 Resp 16 01/20/23 08:00 BP 138/84 01/20/23 08:00 Pulse Ox 95 01/20/23 08:11 FiO2 21 01/20/23 08:11 Intake & Output 01/19/23 01/20/23 01/20/23 18:59 06:59 18:59 Intake Total 180 Output Total 350 Balance -350 180 Weight 77.111 kg 77.111 kg Intake: Oral 180 Output: Urine 350 Other: Voiding Method Urinal # Voids 1 3 - Exam On examination patient is alert and awake. Speech and language functions are normal. Mentation normal. On cranial examination, patient has anisocoria, with left pupil smaller than the right. No obvious ptosis. Extraocular muscles are intact with no nystagmus, no diplopia. Face is symmetric and tongue protrudes to the midline. Tongue is midline, palatal elevation is equal bilaterally. Shoulder shrug normal. On muscle strength testing there is no pronator drift and the strength is normal in arms and legs. No ataxia for hnrvwl-ey-hkbu or aiin-cw-nyoo testing. Sensory to touch is equal bilaterally. The cold sensation he was feeling less in the right arm and right leg as compared to the left side. Cold sensation is equal on the face. - Labs CBC & Chem 7: 01/20/23 07:28 01/20/23 07:28 Labs: Abnormal Lab Results - Last 24 Hours (Table) 01/20/23 01/20/23 Range/Units 07:28 07:28 Eosinophils # 0.8 H (0-0.7) k/uL Chloride 109 H (98-107) mmol/L TSH 0.110 L (0.465-4.680) mIU/L Assessment and Plan Assessment: * Possible stroke manifesting with left leg weakness. Symptoms occurred transiently one day prior to arrival, and it resolved in 1 hour. On the day of admission, her symptoms reappeared on waking up, and are still present. Rest of the examination is completely nonfocal. Current NIH stroke scale is 0. 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 Likely from small vessel disease. * Anisocoria, likely related to brainstem CVA, versus previous cataract surgery. * Hypertension * History of low back surgery * Chronic neck and back pain. Plan: * MRI of the brain without contrast revealed possibility of an acute stroke involving the left lateral medulla. 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 Await official radiology report. * 2-D echo revealed mildly increased left ventricular wall thickness. Left ventricular cavity size is normal. EF is 55-60%. Severe right ventricular dilation. Mildly dilated left atrium and right atrium. Mild pulmonary hypertension. Moderate MR. Diffuse thickening/sclerosis of the aortic valve cusps without reduced excursion. Mild AR. Mild to moderate TR. * CTA head and neck showed: Atheromatous calcification without flow limiting stenosis bilateral carotid bifurcation. Normal platinum of Awad. I personally reviewed CTA, agree with the findings. No obvious dissection. * Fasting a.m. lipid panel cholesterol 197, LDL 113, HDL 61 and triglycerides 112. Agree with starting Lipitor 40 mg daily. * Hemoglobin A1c 5.7 * Optimize control of blood pressure. * Close neuro checks. * Patient has been loaded with aspirin 324 mg in the ER. Agree with maintaining aspirin 81 mg daily. Patient was not on any antiplatelet medication at home. Patient has history of BPH, sometimes gets hematuria. Would avoid DAPT. Patient declined adding Plavix. He does not want to take medications, as he always prefers naturopathic medications. * Telemetry monitoring so far showing sinus rhythm, sinus bradycardia sometimes going to the 50s, some PVC and PACs. No other arrhythmia. 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 There is posterior interspinous fusion at L3-L4 . The remaining levels showed varying degrees of bony bridging. Fixed degenerative grade 1 anterolisthesis L3-L4 and grade 1 retrolisthesis L2-L3. 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 There is overall moderate to severe focal spinal canal stenosis at L2-L3. Moderate at L1-L2 and L3-L4 mild at additional levels. There is severe prostatomegaly. Correlate with patient's symptoms and PSA values. IM to address prostate. * Patient does have moderate to severe focal spinal canal stenosis at L2-L3. However he wants to hold off on orthopedic spine evaluation, until CVA has been ruled out/evaluated and treated. May need MRI of the lumbar spine. * Patient does have chronic neck and back pain, but denies any worsening of symptoms in the last few weeks. No falls. * DVT prophylaxis: Heparin 5000 units subcu every 12 hours * TSH is low 0.110, with normal free T4 of 1.03. IM to address abnormal TFTs. * PT, OT evaluate gait. Addendum 2:00 p.m.: MRI of the brain reported tiny 2 mm area of indeterminate signal on the diffusion imaging with corresponding FLAIR abnormality along the left lateral margin of the medulla. Suspect this is most likely subacute to chronic. Corre late clinically for confirmation. I suspect this is acute to subacute ischemic stroke involving left lateral Medulla. Patient has some clinical symptoms with it.
--- NOTE | 2023-01-20 13:30 | CA ---
Transthoracic Echo Report Name: Tanner Ovalle Age: 87 Gender: M : 1935 Exam Date: 01/20/2023 08:28 Exam Location: [facility] Ht (in): 68 Wt (lb): 170 Ordering Physician: Roel Felder Attending/Referring Phys: Certified Ophthalmic Surgical Assistant Farida Marie [facility] Procedure CPT: Indications: CVA Cardiac Hx: Technical Quality: Fair Contrast 1: Total Dose (mL): Contrast 2: Total Dose (mL): MEASUREMENTS (Male / Female) Normal Values 2D ECHO LV Diastolic Diameter PLAX 5.2 cm 4.2 - 5.9 / 3.9 - 5.3 cm LV Systolic Diameter PLAX 3.2 cm IVS Diastolic Thickness 1.1 cm 0.6 - 1.0 / 0.6 - 0.9 cm LVPW Diastolic Thickness 1.1 cm 0.6 - 1.0 / 0.6 - 0.9 cm LV Relative Wall Thickness 0.4 LVOT Diameter 2.0 cm Ascending Aorta Diameter 3.4 cm M-MODE Aortic Root Diameter MM 2.6 cm LA Systolic Diameter MM 3.9 cm LA Ao Ratio MM 1.5 AV Cusp Separation MM 2.1 cm DOPPLER AV Peak Velocity 164.2 cm/s AV Peak Gradient 10.8 mmHg AV Mean Velocity 111.1 cm/s AV Mean Gradient 5.7 mmHg AV Velocity Time Integral 31.7 cm AI Peak Velocity 383.6 cm/s AI Peak Gradient 58.8 mmHg AI Pressure Half Time 491.7 ms LVOT Peak Velocity 92.3 cm/s LVOT Peak Gradient 3.4 mmHg LVOT Velocity Time Integral 20.5 cm LVOT Stroke Volume 62.1 cm??? LVOT Stroke Volume Index 32.5 ml/m??? LVOT Cardiac Index 2373.0 cm???/min???m??? AV Area Cont Eq vti 2.0 cm??? AV Area Cont Eq pk 1.7 cm??? Mitral E Point Velocity 60.0 cm/s Mitral A Point Velocity 98.8 cm/s Mitral E to A Ratio 0.6 MV Deceleration Time 225.3 ms LV E' Lateral Velocity 6.8 cm/s Mitral E to LV E' Lateral Ratio 8.8 LV E' Septal Velocity 5.8 cm/s Mitral E to LV E' Septal Ratio 10.4 TR Peak Velocity 278.0 cm/s TR Peak Gradient 30.9 mmHg Right Atrial Pressure 3.0 mmHg Pulmonary Artery Systolic Pressu 33.9 mmHg Right Ventricular Systolic Press 33.9 mmHg FINDINGS Left Ventricle Mildly increased left ventricular wall thickness. Left ventricular cavity size normal. Normal left ventricular systolic function with no obvious regional wall motion abnormalities. Left ventricular ejection fraction is estimated at 55- 60%. Right Ventricle Severe right ventricular dilatation. Mild pulmonary hypertension. Right Atrium Mild right atrial dilatation. Left Atrium Mild left atrial dilatation. Mitral Valve Mitral valve thickened. Moderate mitral regurgitation. Aortic Valve Trileaflet aortic valve. Diffuse thickening (sclerosis) of the aortic valve cusps without reduced excursion. Mild aortic regurgitation. Tricuspid Valve Structurally normal tricuspid valve. Fsxy-ya-cngcvopo tricuspid regurgitation. Pulmonic Valve Pulmonic valve not well visualized. Pericardium No pericardial effusion. Aorta Normal size aortic root and proximal ascending aorta. CONCLUSIONS LVH with preserved systolic function Moderate mitral regurgitation Right ventricular enlargement Previewed by: Dr. Sebastian Lainez MD (Electronically Signed) Final Date: 20 January 2023 13:29
--- NOTE | 2023-01-20 13:40 | MR ---
EXAMINATION TYPE: MR brain wo con DATE OF EXAM: 01/20/2023 COMPARISON: NONE HISTORY: Left leg weakness TECHNIQUE: T1-weighted sagittal, T2, FLAIR, and diffusion axial, and T2 coronal coronal views of the brain are submitted. FINDINGS: There is no evidence of acute ischemia. Intermediate signal on diffusion imaging within the left lat eral margin of the patella with corresponding FLAIR abnormality most likely is chronic. Correlate cli nically. Changes of chronic sinusitis. Orbits are symmetric. There is moderate generalized degenerative change and diffuse focal areas of abnormal signal in the white matter which are nonspecific but most typica l of remote microvascular ischemia. Craniocervical junction maintained. Hypertrophic and degenerative changes spine. There is a partially empty sella turcica. IMPRESSION: 1. No sizable area of acute ischemia or mass effect. There is a tiny 2 mm area of intermediate signal on diffusion imaging with corresponding FLAIR abnormality along the left lateral margin of the medul la. Suspect this is most likely subacute to chronic. Correlate clinically for confirmation. 2. Moderate degenerative diffuse white matter changes most typical remote microvascular ischemia.
--- NOTE | 2023-01-20 13:43 | P.PN ---
Subjective Progress Note Date: 01/20/23 Hospital Course: Patient is a very pleasant 87-year-old male with a reported past medical history of BPH, hypertension, cataracts and glaucoma status post surgery, and chronic back pain status post lumbar spine surgeries presenting with new left lower extremity weakness. Per ED physician NIH score 4 upon arrival. Blood glucose was 99. EKG revealed normal sinus rhythm at 72 bpm with inferior T-wave inversion in leads 2, 3, and aVF otherwise no noted T-wave or ST abnormalities upon personal review and interpretation. Vital signs reviewed showing blood pressure 164/93, heart rate 77, respiratory rate 16, temp 97.7F, SpO2 of 98% on room air. CT brain was negative for acute intercranial process with radiology report stating patchy periventricular white matter hypodensity possibly on the basis of chronic white matter ischemic changes along with an old-appearing left basal ganglia lacunar infarct. CTA head and neck revealed atheromatous calcification without flow-limiting stenosis to bilateral carotid bifurcations and a normal wiyot of Awad. Labs completed and reviewed. CBC, coagulation profile, and CMP were unremarkable. Troponin was less than 0.012. Chest x-ray was completed revealing cardiomegaly and negative for acute cardiopulmonary process. Patient was admitted under our services to medical surgical unit with telemetry to undergo continued close neurological monitoring and workup. Neurology was consulted for evaluation. Lumbar CT showedthroughout, moderate to severe focal spinal canal stenosis at L2 to L3, severe prostatomegaly. Echocardiogram shows moderate mitral regurgitation, LVH with preserved systolic function, right ventricular enlargement. Subjective: Patient seen and examined at bedside. No acute events overnight. Hesitant ab out taking any medications. Continues to have left lower extremity weakness and numbness. Pertinent positives and negatives as discussed above, a complete review of systems was performed and all other systems are negative. Vitals Signs Reviewed. General: nontoxic, no distress, appears at stated age Derm: warm, dry Head: atraumatic, normocephalic, symmetric Eyes: EOMI, no lid lag, anicteric sclera Mouth: no lip lesion, mucus membranes moist Cardiovascular: S1S2 reg, no murmur Lungs: CTA bilateral, no rhonchi, no rales , no accessory muscle use Abdominal: soft, nontender to palpation, no guarding, no appreciable organomegaly Ext: no gross muscle atrophy, no edema, no contractures, reduced strength in left lower extremity Neuro: CN II-XI grossly intact, no focal neuro deficits Psych: Alert, oriented, appropriate affect Data Reviewed Today: Pertinent Labs: WBC 7.9, hemoglobin 15.2, creatinine 0.78, TSH 0.11, free T4 1.03, lipid panel pending Imaging: Echocardiogram report reviewed, has moderate mitral regurgitation, LVH with preserved systolic function, right ventricular enlargement Assessment and Plan: Left lower extremity weakness and numbness, suspected ischemic CVA History of chronic lower back status post lumbar spine surgeries Lumbar spinal osteoarthritis Hypertension, uncontrolled History of cataracts and glaucoma status post surgery BPH -Neurology note reviewed, MRI of brain pending, concerning for acute stroke involving left lateral medulla -Started on lisinopril and hydrochlorothiazide -Continue aspirin and statin -Patient is not keen on taking any medications, wants to continue his naturopathic medications -Has been dealing with BPH for a while, but does not want to take any new medications DVT ppx: Subcu heparin Code status: Full code Anticipated discharge place: Pending clinical course Anticipated discharge time: Pending clinical course Objective - Vital Signs Vital signs: Vital Signs Temp 97.9 F 01/20/23 04:30 Pulse 79 01/20/23 12:11 Resp 16 01/20/23 12:11 BP 158/88 01/20/23 12:11 Pulse Ox 98 01/20/23 12:11 FiO2 21 01/20/23 08:11 Intake & Output 01/19/23 01/20/23 01/20/23 18:59 06:59 18:59 Intake Total 420 Output Total 350 Balance -350 420 Weight 77.111 kg 77.111 kg Intake: Oral 420 Output: Urine 350 Other: Voiding Method Urinal # Voids 1 3 - Labs CBC & Chem 7: 01/20/23 07:28 01/20/23 07:28 Labs: Abnormal Lab Results - Last 24 Hours (Table) 01/20/23 01/20/23 Range/Units 07:28 07:28 Eosinophils # 0.8 H (0-0.7) k/uL Chloride 109 H (98-107) mmol/L TSH 0.110 L (0.465-4.680) mIU/L
[2023-01-20 16:35] LABS: Chol/HDL Ratio 3.23 Ratio; LDL Cholesterol,Calculated 113.6 mg/dL (0.0-131.0)
[2023-01-20] MEDS: cloNIDine HCL 0.2 MG TAB PO PRN (21:06)
[2023-01-21] MEDS: ASPIRIN 81 MG PO SCH (08:18)
[2023-01-21 10:46] VITALS: RESP 18
[2023-01-21] MEDS: cloNIDine HCL 0.2 MG TAB PO PRN ×2 (12:42→22:54)
[2023-01-21] MEDS: HEPARIN SODIUM,PORCINE 5,000 UNIT/ML 1 ML VIAL SQ SCH ×2 (12:54→22:07)
[2023-01-21] MEDS: LISINOPRIL-HCTZ 10-12.5 MG 1 EACH TAB PO SCH (12:54)
[2023-01-21] MEDS: ATORVASTATIN 40 MG TAB PO SCH (12:54)
[2023-01-21] MEDS: SODIUM CHLORIDE 0.9% 1,000 ML IV SCH (12:54)
--- NOTE | 2023-01-21 15:03 | P.PN ---
Subjective Progress Note Date: 01/21/23 Hospital Course: Patient is a very pleasant 87-year-old male with a reported past medical history of BPH, hypertension, cataracts and glaucoma status post surgery, and chronic back pain status post lumbar spine surgeries presenting with new left lower extremity weakness. Per ED physician NIH score 4 upon arrival. Blood glucose was 99. EKG revealed normal sinus rhythm at 72 bpm with inferior T-wave inversion in leads 2, 3, and aVF otherwise no noted T-wave or ST abnormalities upon personal review and interpretation. Vital signs reviewed showing blood pressure 164/93, heart rate 77, respiratory rate 16, temp 97.7F, SpO2 of 98% on room air. CT brain was negative for acute intercranial process with radiology report stating patchy periventricular white matter hypodensity possibly on the basis of chronic white matter ischemic changes along with an old-appearing left basal ganglia lacunar infarct. CTA head and neck revealed atheromatous calcification without flow-limiting stenosis to bilateral carotid bifurcations and a normal [place]. Labs completed and reviewed. CBC, coagulation profile, and CMP were unremarkable. Troponin was less than 0.012. Chest x-ray was completed revealing cardiomegaly and negative for acute cardiopulmonary process. Patient was admitted under our services to medical surgical unit with telemetry to undergo continued close neurological monitoring and workup. Neurology was consulted for evaluation. Lumbar CT showedthroughout, moderate to severe focal spinal canal stenosis at L2 to L3, severe prostatomegaly. Echocardiogram shows moderate mitral regurgitation, LVH with preserved systolic function, right ventricular enlargement. MRI shows findings concerning for left lateral medullary stroke. Subjective: Patient seen and examined at bedside. No acute events overnight. Left lower extremity weakness and numbness persists, also complaining of some diplopia Pertinent positives and negatives as discussed above, a complete review of systems was performed and all other systems are negative. Vitals Signs Reviewed. General: nontoxic, no distress, appears at stated age Derm: warm, dry Head: atraumatic, normocephalic, symmetric Eyes: EOMI, no lid lag, anicteric sclera Mouth: no lip lesion, mucus membranes moist Cardiovascular: S1S2 reg, no murmur Lungs: CTA bilateral, no rhonchi, no rales , no accessory muscle use Abdominal: soft, nontender to palpation, no guarding, no appreciable organomegaly Ext: no gross muscle atrophy, no edema, no contractures, reduced strength in left lower extremity Neuro: CN II-XI grossly intact, no focal neuro deficits Psych: Alert, oriented, appropriate affect Data Reviewed Today: Pertinent Labs: No new labs Imaging: No new imaging Assessment and Plan: Left lower extremity weakness and numbness, suspected ischemic CVA History of chronic lower back status post lumbar spine surgeries Lumbar spinal osteoarthritis Hypertension, uncontrolled History of cataracts and glaucoma status post surgery BPH -Discussed management with neurology, patient hesitant to start Plavix given history of hematuria -Left lower extremity weakness more likely secondary to ischemic stroke rather than spinal stenosis, outpatient follow-up with orthopedic surgery -Continue lisinopril and hydrochlorothiazide -Continue aspirin and statin -Patient is not keen on taking any medications, wants to continue his naturopathic medications -Has been dealing with BPH for a while, but does not want to take any new medications DVT ppx: Subcu heparin Code status: Full code Anticipated discharge place: Home with home care Anticipated discharge time: Likely tomorrow Objective - Vital Signs Vital signs: Vital Signs Temp 97.6 F 01/21/23 08:00 Pulse 68 01/21/23 14:00 Resp 18 01/21/23 14:00 BP 181/87 01/21/23 12:00 Pulse Ox 96 01/21/23 12:00 FiO2 21 01/20/23 08:11 Intake & Output 01/20/23 01/21/23 01/21/23 18:59 06:59 18:59 Intake Total 600 360 Output Total 300 300 Balance 600 -300 60 Intake: Oral 600 360 Output: Urine 300 300 Other: Voiding Method Urinal Urinal # Voids 1 2 - Labs CBC & Chem 7: 01/20/23 07:28 01/20/23 07:28 Labs: Abnormal Lab Results - Last 24 Hours (Table) 01/20/23 Range/Units 07:28 HDL Cholesterol 61.00 H (40.00-60.00) mg/dL
--- NOTE | 2023-01-21 17:33 | P.PN ---
Subjective Progress Note Date: 01/21/23 Patient was seen for a follow-up. Patient's was also present. Patient states the diplopia comes and goes. It mainly occurs when he is moving around. It last only 10-15 minutes and then goes away. He states his neck is bothering him. He continues to have some intermittent pain behind the left eye that goes to the forehead. When he presses on the forehead, the headache gets better. Patient states that he took a shower today, did not notice any problems with the temperature sensation. He continues to have problem with balance, and is using walker. Prior to this, he was not using any assistive device. He denies any nausea vomiting any hoarseness or slurred speech. Patient states that when he turns his head fast, he feels dizzy, but that is not new, has history of vertigo for long time. He denies any new numbness tingling focal weakness otherwise. Patient denies any slurred speech, or any dysphagia. Patient's has mentioned that patient fell off the roof in the garage about 10 feet onto the cement about 15 years ago. Fortunately he did not suffer much injuries. Objective - Vital Signs Vital signs: Vital Signs Temp 97.6 F 01/21/23 08:00 Pulse 68 01/21/23 12:00 Resp 18 01/21/23 12:00 BP 181/87 01/21/23 12:00 Pulse Ox 96 01/21/23 12:00 FiO2 21 01/20/23 08:11 Intake & Output 01/20/23 01/21/23 01/21/23 18:59 06:59 18:59 Intake Total 600 360 Output Total 300 300 Balance 600 -300 60 Intake: Oral 600 360 Output: Urine 300 300 Other: Voiding Method Urinal Urinal # Voids 1 2 - Exam On examination patient is alert and awake. Speech and language functions are normal. Mentation normal. No aphasia or dysarthria. On cranial examination, patient has anisocoria, with left pupil smaller than the right. No obvious ptosis. Extraocular muscles are intact with no nystagmus, no diplopia. Face is symmetric and tongue protrudes to the midline. Tongue is midline, palatal elevation is equal bilaterally. Shoulder shrug normal. Facial sensations equal for touch and temperature. On muscle strength testing there is no pronator drift and the strength is normal in arms and legs. His hip flexion, ankle dorsiflexion are all normal. No ataxia for [id number] or [id number] testing. No dysdiadochokinesia Sensory to touch is equal bilaterally. The cold sensation he was feeling less in the right arm and right leg as compared to the left side. Cold sensation is equal on the face. Patient walked with his walker. He was quite unsteady with gait ataxia, and a fall risk. Often losing balance. 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 Likely from small vessel disease. Patient currently has decreased temperature sensation in the right arm, right leg but equal on the face, and anisocoria and gait ataxia. * Anisocoria, likely related to brainstem CVA. * Hypertension * Hyperlipidemia * History of low back surgery * Chronic neck and back pain. Plan: * MRI of the brain without contrast revealed tiny 2 mm area of indeterminate signal on the diffusion imaging with corresponding FLAIR abnormality along the left lateral margin of the Medulla. Suspect this is most likely subacute to chronic. Correlate clinically for confirmation. On my review, I suspect this is acute to subacute ischemic stroke involving the left lateral medulla. Patient has clinical symptoms with it. * 2-D echo revealed mildly increased left ventricular wall thickness. Left ventricular cavity size is normal. EF is 55-60%. Severe right ventricular dilation. Mildly dilated left atrium and right atrium. Mild pulmonary hypertension. Moderate MR. Diffuse thickening/sclerosis of the aortic valve cusps without reduced excursion. Mild AR. Mild to moderate TR. * CTA head and neck showed: Atheromatous calcification without flow limiting stenosis bilateral carotid bifurcation. Normal [place] of [place]. I personally reviewed CTA, agree with the findings. No obvious dissection. * Fasting a.m. lipid panel cholesterol 197, LDL 113, HDL 61 and triglycerides 112. Agree with starting Lipitor 40 mg daily. * Hemoglobin A1c 5.7 * Optimize control of blood pressure. * Close neuro checks. * Patient has been loaded with aspirin 324 mg in the ER. Agree with maintaining aspirin 81 mg daily. Patient was not on any antiplatelet medication at home. Patient has history of BPH, sometimes gets hematuria. Patient declined adding Plavix. He does not want to take medications, as he always prefers naturopathic medications. * Telemetry monitoring so far showing sinus rhythm, sinus bradycardia sometimes going to the 50s, some PVC and PACs. No other arrhythmia. 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 There is posterior i nterspinous fusion at L3-L4 . The remaining levels showed varying degrees of bony bridging. Fixed degenerative grade 1 anterolisthesis L3-L4 and grade 1 retrolisthesis L2-L3. 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 There is overall moderate to severe focal spinal canal stenosis at L2-L3. Moderate at L1-L2 and L3-L4 mild at additional levels. There is severe prostatomegaly. Correlate with patient's symptoms and PSA values. IM to address prostate. * Patient does have moderate to severe focal spinal canal stenosis at L2-L3. However he wants to hold off on orthopedic spine evaluation, until CVA has been treated appropriately. Patient previously used to follow with Dr. Colindres. He will check Dr. Colindres office, who has replaced him. He will follow-up with a neurosurgeon outpatient. At present he does not have significant low back pain or any radicular symptoms. * Patient does have chronic neck and back pain, but denies any worsening of symptoms in the last few weeks. No falls. * DVT prophylaxis: Heparin 5000 units subcu every 12 hours * TSH is low 0.110, with normal free T4 of 1.03. IM to address abnormal TFTs. * PT, OT evaluate gait. * Patient's blood pressure is fluctuating. Suggest observing overnight. Discussed with primary physician. * PT and OT has seen the patient.
[2023-01-22] MEDS: ASPIRIN 81 MG PO SCH (08:49)
[2023-01-22 09:34] VITALS: BP 124/73; PULSE 62; TEMP 97.5
--- NOTE | 2023-01-22 11:13 | P.DS ---
Providers Date of admission: 01/19/23 10:16 Expected date of discharge: 01/22/23 Attending physician: Damien Alba MD Consults: 01/19/23 10:16 Consult Physician Routine Consulting Provider: Jose Dow Consult Reason/Comments: cva Do you want consulting provider notified?: Yes Primary care physician: Zeeshan Kennedy [facility] Course: Discharge Diagnosis: Acute ischemic CVA with left-sided deficits, patient discharged home on aspirin 81 mg daily and atorvastatin 40 mg daily. He was evaluated by neurologist whom recommended patient also take Plavix for a minimum of 21 days and patient was not in agreement but is agreeable to taking aspirin and atorvastatin daily. Patient continues to have left-sided deficits, he was evaluated by PT/OT and is being discharged home with [facility] for continued therapy. History of chronic lower back status post lumbar spine surgeries Lumbar spinal osteoarthritis Hypertension, uncontrolled History of cataracts and glaucoma status post surgery BPH Hospital Course: Patient is a very pleasant 87-year-old male with a reported past medical history of BPH, hypertension, cataracts and glaucoma status post surgery, and chronic back pain status post lumbar spine surgeries. He presented to the emergency department 01/19/27 secondary to complaints of left lower extremity weakness and numbness times greater than 24 hours. Patient reports yesterday morning awakening with weakness/numbness to his left leg. He underwent full evaluation in the emergency department. Per ED physician NIH score 4 upon arrival. Blood glucose was 99. EKG revealed normal sinus rhythm at 72 bpm with inferior T-wave inversion in leads 2, 3, and aVF otherwise no noted T-wave or ST abnormalities upon personal review and interpretation. Vital signs reviewed showing blood pressure 164/93, heart rate 77, respiratory rate 16, temp 97.7F, SpO2 of 98% on room air. CT brain was negative for acute intercranial process with radiology report stating patchy periventricular white matter hypodensity possibly on the basis of chronic white matter ischemic changes along with an old-appearing left basal ganglia lacunar infarct. CTA head and neck revealed atheromatous calcification without flow-limiting stenosis to bilateral carotid bifurcations and a normal [place]. Labs completed and reviewed. CBC, coagulation profile, and CMP were unremarkable. Troponin was less than 0.012. Chest x-ray was completed revealing cardiomegaly and negative for acute cardiopulmonary process. Patient was admitted under our services to medical surgical unit with telemetry to undergo continued close neurological monitoring and workup. Neurology was consulted for evaluation. Lumbar CT showedthroughout, moderate to severe focal spinal canal stenosis at L2 to L3, severe prostatomegaly. Echocardiogram shows moderate mitral regurgitation, LVH with preserved systolic function, right ventricular enlargement. MRI shows findings concerning for left lateral medullary stroke. Patient was evaluated by physical therapy and neurology. He was started on aspirin 81 mg daily and atorvastatin 40 mg daily. Was recommended that patient also be started on Plavix for 21 days the patient was adamantly against secondary to reports of history of hematuria. Patient is medically stable at this time, it is recommended that he follow up outpatient with his PCP and neurologist. Patient educated on importance of medication compliance and was discharged home on aspirin 81 mg daily, atorvastatin 40 mg daily, and lisinopril/hydrochlorothiazide 10/12.5 mg tablets daily. Physical exam: Vital signs reviewed and stable. General: Nontoxic, no distress and appears stated age. Derm: Skin warm and dry, normal coloration for ethnicity. Head: Atraumatic, normocephalic and symmetric. Eyes: EOMs intact, no lid lag, and anicteric sclera Mouth: no lip lesions, mucus membranes moist Cardiovascular: regular rate and rhythm with normal S1S2, no murmur, positive posterior tibial pulses bilaterally, and cap refill < 2 seconds. Lungs: Respirations even, regular, and unlabored on room air. Lungs CTA bilaterally, no rhonchi, no rales, no wheezing, and no accessory muscle usage. Abdominal: soft, nontender to palpation, no guarding, no appreciable organomegaly Ext: ROM intact. No gross muscle atrophy, no edema, no contractures Neuro: Speech clear, face symmetrical and CN II-XII grossly intact, movement and sensation was intact and equal in bilateral lower extremities. However patient did have some noted weakness in left lower extremity and drift when he attempted to hold upright. Patient did have normal [id number] testing and no arm drift or weakness in upper extremities. Psych: Alert and oriented to person, place, time, and situation. Appropriate and pleasant affect. A total of 35 minutes of time were spent preparing this complex discharge summary. Pt was discharged on 01/22/23 at 11:06 AM Patient was seen independently by Nurse Practitioner. This document was prepared using [employer] dictation software. Please allow for errors in systems mechanic while rare they do occur. I reviewed the documentation as provided by the DONALD above, who is the original author of this note. I agree with the documented assessment and plan, with the following changes: none Patient Condition at Discharge: Stable Plan - Discharge Summary Discharge Rx Participant: No New Discharge Prescriptions: New Aspirin 81 mg PO DAILY 90 Days #90 tab Atorvastatin [Lipitor] 40 mg PO DAILY 90 Days #90 tab Lisinopril-Hctz 10-12.5 mg [Zestoretic 10-12.5] 1 each PO DAILY 90 Days #90 tab Discharge Medication List Aspirin 81 mg PO DAILY 90 Days #90 tab 01/22/23 [Rx] Atorvastatin [Lipitor] 40 mg PO DAILY 90 Days #90 tab 01/22/23 [Rx] Lisinopril-Hctz 10-12.5 mg [Zestoretic 10-12.5] 1 each PO DAILY 90 Days #90 tab 01/22/23 [Rx] Follow up Appointment(s)/Referral(s): [facility], [NON-STAFF] - 1 Week Erasto Fields MD [REFERRING] - 2 Weeks (Office will call with appointment date and time) Zeeshan Bowman MD [Primary Care Provider] - 02/02/23 11:45 am Patient Instructions/Handouts: Stroke (DC) Activity/Diet/Wound Care/Special Instructions: Activity: As tolerated. Take breaks as needed. Diet: Heart healthy and carb consistent diet. Avoid salts, or foods with hidden salts such as canned or boxed foods and frozen dinners. Extra salt makes your heart work harder and traps the fluid in your body for longer. Special Instructions: Take all of your medications as directed and remember to keep all of your doctor's appointments and follow-up as needed. Please take all medications as prescribed, failure to comply with medication recommendations may result in recurrent strokes and further deterioration of health up to and including . Thank you for allowing us to participate in your care, it was truly a pleasure having you for our patient!!! Discharge Disposition: HOME WITH HOME HEALTH SERVICES
[2023-01-22] MEDS: LISINOPRIL-HCTZ 10-12.5 MG 1 EACH TAB PO SCH (12:22)
[2023-01-22] MEDS: ATORVASTATIN 40 MG TAB PO SCH (12:22)
[2023-01-22] MEDS: HEPARIN SODIUM,PORCINE 5,000 UNIT/ML 1 ML VIAL SQ SCH (12:22)
[2023-01-22] MEDS: SODIUM CHLORIDE 0.9% 1,000 ML IV SCH (12:23)
== END 2023-01-22 12:30 | disposition home health service (06) | DRG 72 ==
LOC: EC 07:00 → 3SCARD 10:16
PROVIDERS: ADMIT Student in an Organized Health Care Education/Training Program; ATTEND Student in an Organized Health Care Education/Training Program
DX: G46.3 Brain stem stroke syndrome (principal); R29.818 Other symptoms and signs involving the nervous system; M54.9 Dorsalgia, unspecified; R29.700 NIHSS score 0; R29.704 NIHSS score 4; H57.02 Anisocoria; I10 Essential (primary) hypertension; G89.29 Other chronic pain; I34.0 Nonrheumatic mitral (valve) insufficiency; M48.061 Spinal stenosis, lumbar region without neurogenic claudication; N40.1 Benign prostatic hyperplasia with lower urinary tract symptoms; H26.9 Unspecified cataract; H40.9 Unspecified glaucoma; M47.896 Other spondylosis, lumbar region; E78.5 Hyperlipidemia, unspecified; M19.90 Unspecified osteoarthritis, unspecified site; R33.8 Other retention of urine; Z79.899 Other long term (current) drug therapy; Z86.73 Personal history of transient ischemic attack (TIA), and cerebral infarction without residual deficits; Z98.42 Cataract extraction status, left eye; Z98.41 Cataract extraction status, right eye
CPT/HCPCS: 36415; 70450; 70496; 70498; 70551; 71046; 72131; 80053; 80061; 82550; 83036; 83735; 84439; 84443; 84484; 85025; 85610; 85730; 93005; 93306; 94760; 96360; 96361; 99285